=== PATIENT | male | born 1975 | race Caucasian/White ===

== ENCOUNTER → 2019-09-13 | Outpatient (CLI) | payer BC ==
--- NOTE | 2019-09-13 14:05 | US ---
EXAMINATION TYPE: US liver DATE OF EXAM: 09/13/2019 COMPARISON: NONE CLINICAL HISTORY: R74.8 elevated liver enzymes. EXAM MEASUREMENTS: Liver Length: 16.0 cm Gallbladder Wall: 0.10 cm CBD: 0.4 cm Right Kidney: 10.8 x 4.7 x 5.1 cm Pancreas: portions visualized wnl, mostly obscured by bowel gas Liver: Increased attenuation Gallbladder: wnl Evidence for sonographic Young's sign: no CBD: wnl Right Kidney: No hydronephrosis or masses seen There is no ascites. IMPRESSION: Coarse liver echotexture is likely credit and collections representative of underlying hepatic steatosis.
== END | disposition home or self-care (01) ==
LOC: RADUSWWP 12:16
PROVIDERS: ATTEND Family Medicine
DX: R93.2 Abnormal findings on diagnostic imaging of liver and biliary tract (principal); R74.8 Abnormal levels of other serum enzymes
CPT/HCPCS: 76705

== ENCOUNTER 2021-06-17 16:12 | Emergency (ER) | payer BC ==
[2021-06-17 16:19] VITALS: TEMP 98.9
[2021-06-17 16:55] LABS: Basophils % (A) 0 %; Eosinophils # (A) 0.2 k/uL (0-0.7); Eosinophils % (A) 2 %; HCT 47.5 % (39.0-53.0); Lymphocytes # (A) 1.8 k/uL (1.0-4.8); Lymphocytes % (A) 17 %; MCH 32.4 pg (25.0-35.0); MCHC 33.5 g/dL (31.0-37.0); MCV 96.6 fL (80.0-100.0); Mean Platelet Volume 8.2; Monocytes # (A) 0.5 k/uL (0-1.0); Monocytes % (A) 5 %; Neutrophils # (A) 7.7 k/uL (1.3-7.7); Neutrophils % (A) 74 %; Platelet Count 220 k/uL (150-450); RBC 4.92 m/uL (4.30-5.90); RDW 11.4 % (11.5-15.5); WBC 10.4 k/uL (3.8-10.6)
[2021-06-17 17:06] LABS: ALT 63 U/L (4-49); AST 39 U/L (17-59); African American GFR (CKD) >90 (>60 ml/min/1.73 sqM); Albumin 4.5 g/dL (3.5-5.0); Alkaline Phosphatase 70 U/L (38-126); Anion Gap 11 mmol/L; Blood Urea Nitrogen 16 mg/dL (9-20); Carbon Dioxide 22 mmol/L (22-30); Chloride 102 mmol/L (98-107); Glucose 155 mg/dL (74-99); Lipase 250 U/L (23-300); Magnesium 1.5 mg/dL (1.6-2.3); Non-African American GFR(CKD) 84 (>60 ml/min/1.73 sqM); Sodium 135 mmol/L (137-145); Total Bilirubin 1.4 mg/dL (0.2-1.3); Total Protein 7.4 g/dL (6.3-8.2)
[2021-06-17 17:19] LABS: Partial Thromboplastin Time 23.6 sec (22.0-30.0); Prothrombin Time 10.3 sec (9.0-12.0)
[2021-06-17] MEDS ORDERED: MAGNESIUM OXIDE 400 MG TAB PO STA (18:57)
--- NOTE | 2021-06-17 18:59 | ED ---
General Adult HPI - General Chief complaint: Chest Pain Stated complaint: PCP sent pt abnormal EKG Time Seen by Provider: 06/17/21 18:32 Source: patient Mode of arrival: ambulatory Limitations: no limitations - History of Present Illness Initial comments: Dictation was produced using [employer] dictation software. please excuse any grammatical, word or spelling errors. Chief Complaint: 46-year-old male past nuchal history of hypertension presents with concerns from mid-level at the PCPs office about perhaps ACS. History of Present Illness: She is a 46-year-old male evaluated primary care physician's office to get a refill for his hypertension meds. Patient suffers from chronic GERD for the last 16 years. He states he gets episodes of GERD symptoms every so often. States his sugar by food. He told this to the mid- level at the PCPs office. She states that she was concerned about ACS. She said him to the ER to be evaluated. Patient states that it's like his typical GERD symptoms. He denies any exertional pain. No associated diaphoresis or nausea. Patient has a history of coronary artery disease. Patient does not have any history of cholesterol disorder. No tobacco use. No family history of coronary artery disease. The ROS documented in this emergency department record has been reviewed and confirmed by me. Those systems with pertinent positive or negative responses have been documented in the HPI. All other systems are other negative and/or noncontributory. PHYSICAL EXAM: General Impression: Alert and oriented x3, not in acute distress HEENT: Normocephalic atraumatic, extra-ocular movements intact, pupils equal and reactive to light bilaterally, mucous membranes moist. Cardiovascular: Heart regular rate and rhythm Chest: Able to complete full sentences, no retractions, no tachypnea Abdomen: abdomen soft, non-tender, non-distended, no organomegaly Musculoskeletal: Pulses present and equal in all extremities, no peripheral edema Motor: no focal deficits noted Neurological: CN II-XII grossly intact, no focal motor or sensory deficits noted Skin: Intact with no visualized rashes Psych: Normal affect and mood ED course: 46-year-old male sent in from PCPs office for concerns of ACS. Signs upon arrival mildly tachycardic 112, rest of vital signs within acceptable limits. EKG shows no signs of ischemia or infarction. Patient is sinus tachycardic but he feels anxious. Denies any shortness of breath. Denies any active pain symptoms at this time. Labs and x-rays ordered via advance triage protocol. Labs are unremarkable. Troponins negative. Vision is mild magnesium 1.5. Patient given by mouth magnesium oxide. Patient's symptoms likely secondary to GERD. Is not having any active symptoms. Is well-appearing at the bedside. He has no risk factors. Pressure on is negative. Disposition options were discussed. Patient is agreeable for second troponin to risk stratify ACS. Second troponin was negative. Patient told to follow-up with his primary care doctor for possible outpatient stress test. Return precautions discussed. EKG interpretation: Ventricular rate 104, sinus tachycardia,. Interval 1:30, QRS 114, QTc 449. No CT prolongation, no QTC prolongation, no ST or T-wave changes noted.. Overall, this EKG is unremarkable - Related Data Allergies Allergy/AdvReac Type Severity Reaction Status Date / Time Penicillins Allergy Rash/Hives Verified 06/17/21 16:19 Review of Systems ROS Statement: Those systems with pertinent positive or pertinent negative responses have been documented in the HPI. ROS Other: All systems not noted in ROS Statement are negative. Past Medical History Past Medical History: Hypertension History of Any Multi-Drug Resistant Organisms: None Reported Past Surgical History: Hernia Repair Past Psychological History: No Psychological Hx Reported Smoking Status: Never smoker Past Alcohol Use History: Occasional Past Drug Use History: None Reported General Exam Limitations: no limitations Course Vital Signs 06/17/21 16:17 Temperature 98.9 F Pulse Rate 112 H Respiratory 20 Rate Blood Pressure 143/87 O2 Sat by Pulse 100 Oximetry Medical Decision Making - Lab Data Result diagrams: 06/17/21 16:23 06/17/21 16:23 Lab Results 06/17/21 06/17/21 06/17/21 Range/Units 16:23 16:23 16:23 WBC 10.4 (3.8-10.6) k/uL RBC 4.92 (4.30-5.90) m/uL Hgb 16.0 (13.0-17.5) gm/dL Hct 47.5 (39.0-53.0) % MCV 96.6 (80.0-100.0) fL MCH 32.4 (25.0-35.0) pg MCHC 33.5 (31.0-37.0) g/dL RDW 11.4 L (11.5-15.5) % Plt Count 220 (150-450) k/uL MPV 8.2 Neutrophils % 74 % Lymphocytes % 17 % Monocytes % 5 % Eosinophils % 2 % Basophils % 0 % Neutrophils # 7.7 (1.3-7.7) k/uL Lymphocytes # 1.8 (1.0-4.8) k/uL Monocytes # 0.5 (0-1.0) k/uL Eosinophils # 0.2 (0-0.7) k/uL Basophils # 0.0 (0-0.2) k/uL PT 10.3 (9.0-12.0) sec INR 1.0 (<1.2) APTT 23.6 (22.0-30.0) sec Sodium 135 L (137-145) mmol/L Potassium 4.0 (3.5-5.1) mmol/L Chloride 102 (98-107) mmol/L Carbon Dioxide 22 (22-30) mmol/L Anion Gap 11 mmol/L BUN 16 (9-20) mg/dL Creatinine 1.07 (0.66-1.25) mg/dL Est GFR (CKD-EPI)AfAm >90 (>60 ml/min/1.73 sqM) Est GFR (CKD-EPI)NonAf 84 (>60 ml/min/1.73 sqM) Glucose 155 H (74-99) mg/dL Calcium 10.0 (8.4-10.2) mg/dL Magnesium 1.5 L (1.6-2.3) mg/dL Total Bilirubin 1.4 H (0.2-1.3) mg/dL AST 39 (17-59) U/L ALT 63 H (4-49) U/L Alkaline Phosphatase 70 (38-126) U/L Troponin I (0.000-0.034) ng/mL Total Protein 7.4 (6.3-8.2) g/dL Albumin 4.5 (3.5-5.0) g/dL Lipase 250 (23-300) U/L 06/17/21 06/17/21 Range/Units 16:23 19:34 WBC (3.8-10.6) k/uL RBC (4.30-5.90) m/uL Hgb (13.0-17.5) gm/dL Hct (39.0-53.0) % MCV (80.0-100.0) fL MCH (25.0-35.0) pg MCHC (31.0-37.0) g/dL RDW (11.5-15.5) % Plt Count (150-450) k/uL MPV Neutrophils % % Lymphocytes % % Monocytes % % Eosinophils % % Basophils % % Neutrophils # (1.3-7.7) k/uL Lymphocytes # (1.0-4.8) k/uL Monocytes # (0-1.0) k/uL Eosinophils # (0-0.7) k/uL Basophils # (0-0.2) k/uL PT (9.0-12.0) sec INR (<1.2) APTT (22.0-30.0) sec Sodium (137-145) mmol/L Potassium (3.5-5.1) mmol/L Chloride (98-107) mmol/L Carbon Dioxide (22-30) mmol/L Anion Gap mmol/L BUN (9-20) mg/dL Creatinine (0.66-1.25) mg/dL Est GFR (CKD-EPI)AfAm (>60 ml/min/1.73 sqM) Est GFR (CKD-EPI)NonAf (>60 ml/min/1.73 sqM) Glucose (74-99) mg/dL Calcium (8.4-10.2) mg/dL Magnesium (1.6-2.3) mg/dL Total Bilirubin (0.2-1.3) mg/dL AST (17-59) U/L ALT (4-49) U/L Alkaline Phosphatase (38-126) U/L Troponin I <0.012 <0.012 (0.000-0.034) ng/mL Total Protein (6.3-8.2) g/dL Albumin (3.5-5.0) g/dL Lipase (23-300) U/L Disposition Clinical Impression: Chest pain Disposition: HOME SELF-CARE Condition: Good Instructions (If sedation given, give patient instructions): Chest Pain (ED) Additional Instructions: Follow-up with PCP for possible outpatient stress test. Is patient prescribed a controlled substance at d/c from ED?: No Referrals: Humberto Elena MD [Primary Care Provider] - 1-2 days
--- NOTE | 2021-06-17 19:08 | XR ---
EXAMINATION TYPE: XR chest 2V DATE OF EXAM: 06/17/2021 COMPARISON: NONE HISTORY: Abnormal cardiogram TECHNIQUE: 2 views FINDINGS: Heart and mediastinum are normal. Lungs are clear. Diaphragm is normal. Bony thorax appears normal. IMPRESSION: Normal chest.
[2021-06-17] MEDS ORDERED: ASPIRIN 81 MG PO STA (20:48)
[2021-06-17 21:01] VITALS: BP 133/87; PULSE 85; RESP 18
== END 2021-06-17 20:58 | disposition home or self-care (01) ==
LOC: EC 16:12
DX: R07.9 Chest pain, unspecified (principal); I10 Essential (primary) hypertension; K21.9 Gastro-esophageal reflux disease without esophagitis; Z88.0 Allergy status to penicillin
CPT/HCPCS: 36415; 71046; 80053; 83690; 83735; 84484; 85025; 85610; 85730; 93005; 99285

== ENCOUNTER 2022-01-11 12:03 | Observation (INO) | payer BC ==
[2022-01-11] MEDS ORDERED: LORazepam 2 MG/ML INJ IV STA (12:25)
[2022-01-11] MEDS ORDERED: ASPIRIN 81 MG PO STA (12:25)
[2022-01-11] MEDS ORDERED: NITROGLYCERIN OINT 1 INCH/GM PACKET TOPICAL STA (12:25)
--- NOTE | 2022-01-11 12:28 | ED ---
General Adult HPI - General Chief complaint: Chest Pain Stated complaint: chest pain Time Seen by Provider: 01/11/22 12:05 Source: patient, RN notes reviewed, old records reviewed Mode of arrival: wheelchair Limitations: no limitations - History of Present Illness Initial comments: This is a 46-year-old male with a past medical history significant for high blood pressure. Patient states she's also on metformin for elevated liver enzymes. Patient states he drinks about 4 beers a day. Patient comes in today because he is having chest pain and radiation to both arms in particular radiation to the right arm. Patient states she's also short of breath. Patient states he was in about a week ago for the same thing and then went to [place] again for chest pain on and he states he came back today so he came in again. Patient states the chest pain started when he started to become into bed with his this morning and he rested and thought it would get better but it did not so she came to the emergency department. Patient denies any fever chills or cough. Patient denies any family history of chest pain patient denies any smoking. Patient denies any abdominal pain patient denies nausea vomiting diarrhea. - Related Data Home Medications Medication Instructions Recorded Confirmed 5Hydroxytryptophan(Oxitriptan) 200 mg PO DAILY 01/04/22 01/11/22 [5-Htp] Ascorbic Acid [Vitamin C] 1,000 mg PO DAILY 01/04/22 01/11/22 Cholecalciferol [Vitamin D3 (25 25 mcg PO DAILY 01/04/22 01/11/22 Mcg = 1000 Iu)] Loratadine-Pseudoeph 5-120 mg 1 tab PO DAILY 01/04/22 01/11/22 [Claritin-D 12 Hour] Milk Thistle 150 mg PO DAILY 01/04/22 01/11/22 Omeprazole Magnesium [PriLOSEC OTC] 20 mg PO DAILY 01/04/22 01/11/22 Vitamin E (Dl,Tocopheryl Acet) 400 unit PO DAILY 01/04/22 01/11/22 [Vitamin E (400 Iu = 180 mg)] amLODIPine BESYLATE/BENAZEPRIL 1 cap PO DAILY 01/04/22 01/11/22 [Lotrel 10-40 MG] hydroCHLOROthiazide [Hydrodiuril] 12.5 mg PO DAILY PRN 01/04/22 01/11/22 metFORMIN HCL ER [Glucophage XR] 500 mg PO DAILY 01/04/22 01/11/22 Allergies Allergy/AdvReac Type Severity Reaction Status Date / Time Penicillins Allergy Rash/Hives Verified 01/11/22 14:28 all over Review of Systems ROS Statement: Those systems with pertinent positive or pertinent negative responses have been documented in the HPI. ROS Other: All systems not noted in ROS Statement are negative. Past Medical History Past Medical History: Hypertension History of Any Multi-Drug Resistant Organisms: None Reported Past Surgical History: Hernia Repair Past Psychological History: No Psychological Hx Reported Smoking Status: Never smoker Past Alcohol Use History: Occasional Past Drug Use History: None Reported General Exam - General Exam Comments Initial Comments: GENERAL: Patient is well-developed and well-nourished. Patient is nontoxic and well- hydrated and is in mild distress. ENT: Neck is soft and supple. No significant lymphadenopathy is noted. Oropharynx is clear. Moist mucous membranes. Neck has full range of motion without eliciting any pain. EYES: The sclera were anicteric and conjunctiva were pink and moist. Extraocular movements were intact and pupils were equal round and reactive to light. Eyelid s were unremarkable. PULMONARY: Unlabored respirations. Good breath sounds bilaterally. No audible rales rhonchi or wheezing was noted. CARDIOVASCULAR: Patient is tachycardic. ABDOMEN: Soft and nontender with normal bowel sounds. SKIN: Skin is clear with no lesions or rashes and otherwise unremarkable. NEUROLOGIC: Patient is alert and oriented x3. Cranial nerves II through XII are grossly intact. Motor and sensory are also intact. Normal speech, volume and content. Symmetrical smile. MUSCULOSKELETAL: Normal extremities with adequate strength and full range of motion. LYMPHATICS: No significant lymphadenopathy is noted PSYCHIATRIC: Patient appears very anxious. Limitations: no limitations Course Vital Signs 01/11/22 01/11/22 12:04 13:00 Temperature 98.2 F Pulse Rate 121 H 98 Respiratory 18 18 Rate Blood Pressure 150/76 137/85 O2 Sat by Pulse 98 97 Oximetry Medical Decision Making - Medical Decision Making EKG shows sinus tachycardia at 115 bpm SD interval 174 QRS is under 15 QT interval 320 QTC is 389. Patient's EKG shows no ST segment elevation or depression. Chest x-ray shows no acute abnormality I spoke with some physicians Dr. Martinez she agreed to admit the patient admitted the patient wrote admitting orders.. - Lab Data Result diagrams: 01/11/22 12:31 01/11/22 12:31 Lab Results 01/11/22 01/11/22 01/11/22 Range/Units 12:31 12:31 12:31 WBC 6.8 (3.8-10.6) k/uL RBC 4.79 (4.30-5.90) m/uL Hgb 15.9 (13.0-17.5) gm/dL Hct 45.8 (39.0-53.0) % MCV 95.7 (80.0-100.0) fL MCH 33.3 (25.0-35.0) pg MCHC 34.8 (31.0-37.0) g/dL RDW 12.9 (11.5-15.5) % Plt Count 280 (150-450) k/uL MPV 8.0 Neutrophils % 81 % Lymphocytes % 11 % Monocytes % 6 % Eosinophils % 0 % Basophils % 1 % Neutrophils # 5.5 (1.3-7.7) k/uL Lymphocytes # 0.7 L (1.0-4.8) k/uL Monocytes # 0.4 (0-1.0) k/uL Eosinophils # 0.0 (0-0.7) k/uL Basophils # 0.1 (0-0.2) k/uL PT 10.7 (9.0-12.0) sec INR 1.0 (<1.2) APTT 24.9 (22.0-30.0) sec Sodium 133 L (137-145) mmol/L Potassium 3.8 (3.5-5.1) mmol/L Chloride 101 (98-107) mmol/L Carbon Dioxide 22 (22-30) mmol/L Anion Gap 10 mmol/L BUN 9 (9-20) mg/dL Creatinine 0.73 (0.66-1.25) mg/dL Est GFR (CKD-EPI)AfAm >90 (>60 ml/min/1.73 sqM) Est GFR (CKD-EPI)NonAf >90 (>60 ml/min/1.73 sqM) Glucose 136 H (74-99) mg/dL Calcium 9.3 (8.4-10.2) mg/dL Magnesium 1.7 (1.6-2.3) mg/dL Total Bilirubin 1.4 H (0.2-1.3) mg/dL AST 30 (17-59) U/L ALT 39 (4-49) U/L Alkaline Phosphatase 58 (38-126) U/L Troponin I (0.000-0.034) ng/mL Total Protein 7.4 (6.3-8.2) g/dL Albumin 4.7 (3.5-5.0) g/dL Urine Opiates Screen (NotDetected) Ur Oxycodone Screen (NotDetected) Urine Methadone Screen (NotDetected) Ur Propoxyphene Screen (NotDetected) Ur Barbiturates Screen (NotDetected) U Tricyclic Antidepress (NotDetected) Ur Phencyclidine Scrn (NotDetected) Ur Amphetamines Screen (NotDetected) U Methamphetamines Scrn (NotDetected) U Benzodiazepines Scrn (NotDetected) Urine Cocaine Screen (NotDetected) U Marijuana (THC) Screen (NotDetected) 01/11/22 01/11/22 Range/Units 12:31 13:13 WBC (3.8-10.6) k/uL RBC (4.30-5.90) m/uL Hgb (13.0-17.5) gm/dL Hct (39.0-53.0) % MCV (80.0-100.0) fL MCH (25.0-35.0) pg MCHC (31.0-37.0) g/dL RDW (11.5-15.5) % Plt Count (150-450) k/uL MPV Neutrophils % % Lymphocytes % % Monocytes % % Eosinophils % % Basophils % % Neutrophils # (1.3-7.7) k/uL Lymphocytes # (1.0-4.8) k/uL Monocytes # (0-1.0) k/uL Eosinophils # (0-0.7) k/uL Basophils # (0-0.2) k/uL PT (9.0-12.0) sec INR (<1.2) APTT (22.0-30.0) sec Sodium (137-145) mmol/L Potassium (3.5-5.1) mmol/L Chloride (98-107) mmol/L Carbon Dioxide (22-30) mmol/L Anion Gap mmol/L BUN (9-20) mg/dL Creatinine (0.66-1.25) mg/dL Est GFR (CKD-EPI)AfAm (>60 ml/min/1.73 sqM) Est GFR (CKD-EPI)NonAf (>60 ml/min/1.73 sqM) Glucose (74-99) mg/dL Calcium (8.4-10.2) mg/dL Magnesium (1.6-2.3) mg/dL Total Bilirubin (0.2-1.3) mg/dL AST (17-59) U/L ALT (4-49) U/L Alkaline Phosphatase (38-126) U/L Troponin I <0.012 (0.000-0.034) ng/mL Total Protein (6.3-8.2) g/dL Albumin (3.5-5.0) g/dL Urine Opiates Screen Detected H (NotDetected) Ur Oxycodone Screen Not Detected (NotDetected) Urine Methadone Screen Not Detected (NotDetected) Ur Propoxyphene Screen Not Detected (NotDetected) Ur Barbiturates Screen Not Detected (NotDetected) U Tricyclic Antidepress Not Detected (NotDetected) Ur Phencyclidine Scrn Not Detected (NotDetected) Ur Amphetamines Screen Not Detected (NotDetected) U Methamphetamines Scrn Not Detected (NotDetected) U Benzodiazepines Scrn Not Detected (NotDetected) Urine Cocaine Screen Not Detected (NotDetected) U Marijuana (THC) Screen Not Detected (NotDetected) Disposition Clinical Impression: Chest pain Disposition: ADMITTED IP TO THIS HOSP Referrals: Humberto Elena MD [Primary Care Provider] - 1-2 days Time of Disposition: 14:17
[2022-01-11 12:52] LABS: ALT 39 U/L (4-49); AST 30 U/L (17-59); African American GFR (CKD) >90 (>60 ml/min/1.73 sqM); Albumin 4.7 g/dL (3.5-5.0); Alkaline Phosphatase 58 U/L (38-126); Anion Gap 10 mmol/L; Blood Urea Nitrogen 9 mg/dL (9-20); Calcium 9.3 mg/dL (8.4-10.2); Carbon Dioxide 22 mmol/L (22-30); Chloride 101 mmol/L (98-107); Glucose 136 mg/dL (74-99); Magnesium 1.7 mg/dL (1.6-2.3); Non-African American GFR(CKD) >90 (>60 ml/min/1.73 sqM); Potassium 3.8 mmol/L (3.5-5.1); Sodium 133 mmol/L (137-145); Total Bilirubin 1.4 mg/dL (0.2-1.3); Total Protein 7.4 g/dL (6.3-8.2)
[2022-01-11 13:03] LABS: Partial Thromboplastin Time 24.9 sec (22.0-30.0); Prothrombin Time 10.7 sec (9.0-12.0)
[2022-01-11 13:11] LABS: Basophils # (A) 0.1 k/uL (0-0.2); Basophils % (A) 1 %; Eosinophils % (A) 0 %; HCT 45.8 % (39.0-53.0); HGB 15.9 gm/dL (13.0-17.5); Lymphocytes # (A) 0.7 k/uL (1.0-4.8); Lymphocytes % (A) 11 %; MCH 33.3 pg (25.0-35.0); MCHC 34.8 g/dL (31.0-37.0); MCV 95.7 fL (80.0-100.0); Monocytes # (A) 0.4 k/uL (0-1.0); Monocytes % (A) 6 %; Neutrophils # (A) 5.5 k/uL (1.3-7.7); Neutrophils % (A) 81 %; Platelet Count 280 k/uL (150-450); RBC 4.79 m/uL (4.30-5.90); RDW 12.9 % (11.5-15.5); WBC 6.8 k/uL (3.8-10.6)
--- NOTE | 2022-01-11 13:17 | XR ---
EXAMINATION TYPE: XR chest 2V DATE OF EXAM: 01/11/2022 COMPARISON: X-ray dated 01/04/2022 HISTORY: Chest pain TECHNIQUE: Frontal and lateral views of the chest are obtained. FINDINGS: Unremarkable lungs. No pleural effusion or pneumothorax. No cardiomegaly. Unremarkable bony thoracic cage. IMPRESSION: No definite acute pulmonary abnormality identified.
[2022-01-11 14:04] LABS: Amphetamine Screen,Urine Not Detected (NotDetected); Barbiturate Screen,Urine Not Detected (NotDetected); Benzodiazepines Screen,Urine Not Detected (NotDetected); Cocaine Screen,Urine Not Detected (NotDetected); Methadone Screen, Urine Not Detected (NotDetected); Opiate Screen,Urine Detected (NotDetected); Oxycodone Screen, Urine Not Detected (NotDetected); Phencyclidine Screen,Urine Not Detected (NotDetected); Tricyclic Antidepressant,Urine Not Detected (NotDetected); Urn Cannabinoid Scrn Not Detected (NotDetected)
[2022-01-11] MEDS ORDERED: NITROGLYCERIN SL TABS 0.4 MG TAB SUBLINGUAL PRN (14:37)
[2022-01-11] MEDS: NITROGLYCERIN OINT 1 INCH/GM PACKET TOPICAL SCH (17:28)
--- NOTE | 2022-01-11 21:17 | P.HPIM ---
History of Present Illness H&P Date: 01/11/22 Chief Complaint: Chest pain 46-year-old man with medical history of hypertension, diabetes, migraines, GERD presented with chest pain. Patient says his pain starts in his abdomen and radiates up to his chest, squeezing in nature, worse when lying flat. It is not particularly worse with exertion or food. He says he's had this issue on and off for about 3 weeks, has been assessed twice for heart attacks with stress test which was negative. He denies fevers, chills, nausea, vomiting, palpitations, cough, dyspnea, dysuria, dyschezia, numbness/weakness of extremities, constipation, diarrhea. Upon my evaluation, patient was afebrile, 146/75, heart rate 78, 98% on room air. CBC, chemistries are unremarkable. LFTs were unremarkable. Troponin was negative 3 times. Urine tox screen is positive for opiates. Chest x-ray shows no definitive cardiopulmonary pathology. EKG demonstrated sinus tachycardia with left axis deviation and incomplete right bundle-branch block. All Systems reviewed and pertinent positives and negatives noted in HPI, all other symptoms are negative Gen: awake, alert HEENT: normocephalic, atraumatic, good hearing acuity, moist mucous membranes Resp: good air exchange, breathing comfortably with no accessory muscle use CVS: good distal perfusion x 4, GI: soft, NTTP, ND : no SPT, no CVAT, yang catheter not present MSK: no pitting edema, no clubbing Neuro: non-focal, moving all extremities Psych: cooperative, euthymic mood Labs and imaging reviewed as above Assessment/plan: Chest pain, atypical -Admit to observation, telemetry -Trend troponins -EKG/nitro when necessary -ASA, statin -Add sucralfate, Tums when necessary -Cardiology consulted by emergency room -Outpatient GI referral for EGD Hypertension Diabetes type 2 History of migraines GERD -Home medications reviewed and reconciled Patient is full code DVT prophylaxis with enoxaparin Past Medical History Past Medical History: Hypertension History of Any Multi-Drug Resistant Organisms: None Reported Past Surgical History: Hernia Repair Past Anesthesia/Blood Transfusion Reactions: No Reported Reaction Past Psychological History: No Psychological Hx Reported Smoking Status: Never smoker Past Alcohol Use History: Occasional Past Drug Use History: None Reported - Past Family History Mother Family Medical History: Hypertension Father Family Medical History: Hypertension Medications and Allergies Home Medications Medication Instructions Recorded Confirmed Type 5Hydroxytryptophan(Oxitriptan) 200 mg PO DAILY 01/04/22 01/11/22 History [5-Htp] Ascorbic Acid [Vitamin C] 1,000 mg PO DAILY 01/04/22 01/11/22 History Cholecalciferol [Vitamin D3 (25 25 mcg PO DAILY 01/04/22 01/11/22 History Mcg = 1000 Iu)] Loratadine-Pseudoeph 5-120 mg 1 tab PO DAILY 01/04/22 01/11/22 History [Claritin-D 12 Hour] Milk Thistle 150 mg PO DAILY 01/04/22 01/11/22 History Omeprazole Magnesium [PriLOSEC OTC] 20 mg PO DAILY 01/04/22 01/11/22 History Vitamin E (Dl,Tocopheryl Acet) 400 unit PO DAILY 01/04/22 01/11/22 History [Vitamin E (400 Iu = 180 mg)] amLODIPine BESYLATE/BENAZEPRIL 1 cap PO DAILY 01/04/22 01/11/22 History [Lotrel 10-40 MG] hydroCHLOROthiazide [Hydrodiuril] 12.5 mg PO DAILY PRN 01/04/22 01/11/22 History metFORMIN HCL ER [Glucophage XR] 500 mg PO DAILY 01/04/22 01/11/22 History Allergies Allergy/AdvReac Type Severity Reaction Status Date / Time Penicillins Allergy Rash/Hives Verified 01/11/22 16:10 all over Physical Exam Osteopathic Statement: *. No significant issues noted on an osteopathic structural exam other than those noted in the History and Physical/Consult. Vitals: Vital Signs Temp Pulse Pulse Resp BP BP Pulse Ox 01/11/22 16:23 78 01/11/22 15:00 98.6 F 93 78 18 126/80 146/75 98 01/11/22 13:00 98 18 137/85 97 01/11/22 12:04 98.2 F 121 H 18 150/76 98 Intake and Output 01/11/22 01/11/22 01/11/22 06:59 14:59 22:59 Intake Total 240 Balance 240 Intake: Oral 240 Other: Voiding Method Toilet Weight 97.522 kg Results CBC & Chem 7: 01/11/22 12:31 05/23/22 12:31 Labs: Abnormal Lab Results - Last 24 Hours (Table) 01/11/22 01/11/22 01/11/22 Range/Units 12:31 12:31 13:13 Lymphocytes # 0.7 L (1.0-4.8) k/uL Sodium 133 L (137-145) mmol/L Glucose 136 H (74-99) mg/dL Total Bilirubin 1.4 H (0.2-1.3) mg/dL Urine Opiates Screen Detected H (NotDetected) Thrombosis Risk Factor Assmnt - Choose All That Apply Each Factor Represents 1 point: Age 41-60 years, Obesity (BMI >25) Thrombosis Risk Factor Assessment Total Risk Factor Score: 2 Thrombosis Risk Factor Assessment Level: Low Risk
[2022-01-12] MEDS: NITROGLYCERIN OINT 1 INCH/GM PACKET TOPICAL SCH ×2 (01:04→05:26)
[2022-01-12 03:18] VITALS: TEMP 98.2
[2022-01-12 07:27] VITALS: BP 127/78; PULSE 63; RESP 18
[2022-01-12] MEDS ORDERED: INSULIN ASPART (NovoLOG) 100 UNIT/ML VIAL SQ SCH (07:30)
[2022-01-12 08:04] LABS: Glucose,Whole Blood 113 mg/dL (75-99)
[2022-01-12] MEDS ORDERED: ASPIRIN 81 MG PO SCH (09:00)
[2022-01-12] MEDS ORDERED: PANTOPRAZOLE 40 MG TABLET PO SCH (09:00)
[2022-01-12] MEDS ORDERED: NON FORMULARY DRUG (Milk Thistle [Milk Thistle] 150 MG Capsule) PO SCH (09:00)
[2022-01-12] MEDS ORDERED: LORATADINE-PSEUDOEPH 5-120 MG 1 EACH TAB.ER.12H PO SCH (09:00)
[2022-01-12] MEDS ORDERED: hydroCHLOROthiazide 12.5 MG CAP PO PRN (09:00)
[2022-01-12] MEDS ORDERED: NON FORMULARY DRUG (5hydroxytryptophan(Oxitriptan) [5-Htp] 200 MG Capsule) PO SCH (09:00)
[2022-01-12] MEDS ORDERED: CHOLECALCIFEROL 25 MCG (1000 IU) TABLET PO SCH (09:00)
[2022-01-12] MEDS ORDERED: ENOXAPARIN 40 MG/0.4 ML SYRINGE SQ SCH (09:00)
[2022-01-12] MEDS ORDERED: VITAMIN E (DL,TOCOPHERYL ACET) 400 UNIT (180 MG) CAP PO SCH (09:00)
[2022-01-12] MEDS ORDERED: ASPIRIN 325 MG TAB PO SCH (09:00)
[2022-01-12] MEDS ORDERED: amLODIPine 10 MG TAB PO SCH (09:00)
[2022-01-12] MEDS ORDERED: ASCORBIC ACID 500 MG TAB PO SCH (09:00)
[2022-01-12] MEDS ORDERED: lisinopriL 20 MG TAB PO SCH (09:00)
--- NOTE | 2022-01-12 09:01 | P.CRDCN ---
History of Present Illness History of present illness: This is a pleasant 46-year-old male past medical history significant for hypertension, fatty liver, GERD. He follows with Dr. Hathaway. We have been asked to see in consultation for chest pain. Patient is seen and examined at bedside. He presents to the emergency department with complaints of abdominal pain. He has been having burning abdominal pain intermittently for 3 weeks. He states he has had GERD for 15+ years and this discomfort is different. Located in the umbilical region of his abdomen. It radiates up to his chest and right shoulder. He states it comes and goes, non-exertional, when it does occur its 10/10 and debilitating for him, that he cannot do his daily activities. He has associated nausea and vomiting, two episodes of emesis yesterday. He sometimes has associated chills/diaphoresis. He denies any shortness of breath, syncope, or near syncope, palpitations. He states he is being worked up for vertigo currently as well. He had an appointment with his PCP yesterday, but his pain was so severe he presented to the ER. He was recently discharged from [facility] on 01/08/2022, he presented there with similar complaints. He underwent a Nuclear stress test and echocardiogram and was told it was normal. He was discharged home with follow up. He denies history of CAD, [place], Stroke or Diabetes. He was placed on Metformin for fatty liver. He denies any tobacco use or illicit drug use. DIAGNOSTICS * EKG reveals sinus tachycardia, heart rate 115, non-specific ST-T wave abnormalities, no acute ischemia. * Recent stress Echo in the office 07/27/2021 with no evidence of stress induced ischemia or wall motion abnormalities. Patient walked for a total of 9 minutes and achieved 10.3 METS with a maximum heart rate of 160bpm. Which is about 92% of MPHR * Echocardiogram 01/05/2022, revealed EF 55-60%, mild concentric LVH, trace mitral regurgitation, trace tricuspid regurgitation * Telemetry tracings indicate sinus mechanism HR 70s-90s * Chest xray no acute cardiopulmonary process * Laboratory reviewed, troponin negative x 3, CBC unremarkable, sodium 133, potassium 3.8, BUN 9 serum creatinine 0.73, magnesium 1.7, Urine tox positive of opiates * Current home medications include amlodipine/benazepril 1040mg daily, Hydrochlorothiazide 12.5 mg daily, metformin, Vitamin E, prilosec, clairitin, vitamin D and vitamin C REVIEW OF SYSTEMS At the time of my exam: CONSTITUTIONAL: Denies fever or chills. CARDIOVASCULAR: Denies chest pain, shortness of breath, orthopnea, PND or palpitations. RESPIRATORY: Denies cough. GASTROINTESTINAL: Denies abdominal pain, diarrhea, constipation, nausea or vomiting. MUSCULOSKELETAL: Denies myalgias. NEUROLOGIC: Denies numbness, tingling, headache or weakness. ENDOCRINE: Denies fatigue, weight change, polydipsia or polyurina. GENITOURINARY: Denies burning, hematuria or urgency with micturation. HEMATOLOGIC: Denies history of anemia or bleeding. PHYSICAL EXAMINATION Vitals reviewed CONSTITUTIONAL: No apparent distress. HEENT: Head is normocephalic. Pupils are equal, round. Sclerae anicteric. Mucous membranes of the mouth are moist. No JVD. No carotid bruit. CHEST EXAMINATION: Lungs are clear to auscultation. No chest wall tenderness is noted on palpation or with deep breathing. HEART EXAMINATION: Regular rate and rhythm. S1, S2 heard. No murmurs, gallops or rub. ABDOMEN: Soft, nontender. Positive bowel sounds. EXTREMITIES: 2+ peripheral pulses, no lower extremity edema and no calf tenderness. SKIN: warm, dry NEUROLOGIC EXAMINATION: Patient is awake, alert and oriented x3. ASSESSMENT Abdominal pain with radiation to the center of the chest and right shoulder, acute coronary syndrome has been ruled out Hypertension GERD History of fatty liver PLAN An acute coronary event has been ruled out with no EKG evidence of ischemia and negative cardiac enzymes. From a cardiology perspective, no further workup in terms of chest pain at this time. Patient is stable from our perspective. Patient with recent negative workup for chest pain including Echo 01/05/2022 and Stress echo 07/2021, and states he had a negative Nuclear stress test on 01/07/2022 at [facility], we will obtain these records as well. Continue home cardiac medications. Abdominal pain workup per primary Patient may follow up outpatient with Dr. Hathaway We will follow the patient as needed. Please reach out with any further questions or concerns. Thank you kindly for this consultation. Nurse practitioner note has been reviewed by physician. Signing provider agrees with the documented findings, assessment, and plan of care. Past Medical History Past Medical History: Hypertension History of Any Multi-Drug Resistant Organisms: None Reported Past Surgical History: Hernia Repair Past Anesthesia/Blood Transfusion Reactions: No Reported Reaction Past Psychological History: No Psychological Hx Reported Smoking Status: Never smoker Past Alcohol Use History: Occasional Past Drug Use History: None Reported - Past Family History Mother Family Medical History: Hypertension Father Family Medical History: Hypertension Medications and Allergies Home Medications Medication Instructions Recorded Confirmed Type 5Hydroxytryptophan(Oxitriptan) 200 mg PO DAILY 01/04/22 01/11/22 History [5-Htp] Ascorbic Acid [Vitamin C] 1,000 mg PO DAILY 01/04/22 01/11/22 History Cholecalciferol [Vitamin D3 (25 25 mcg PO DAILY 01/04/22 01/11/22 History Mcg = 1000 Iu)] Loratadine-Pseudoeph 5-120 mg 1 tab PO DAILY 01/04/22 01/11/22 History [Claritin-D 12 Hour] Milk Thistle 150 mg PO DAILY 01/04/22 01/11/22 History Omeprazole Magnesium [PriLOSEC OTC] 20 mg PO DAILY 01/04/22 01/11/22 History Vitamin E (Dl,Tocopheryl Acet) 400 unit PO DAILY 01/04/22 01/11/22 History [Vitamin E (400 Iu = 180 mg)] amLODIPine BESYLATE/BENAZEPRIL 1 cap PO DAILY 01/04/22 01/11/22 History [Lotrel 10-40 MG] hydroCHLOROthiazide [Hydrodiuril] 12.5 mg PO DAILY PRN 01/04/22 01/11/22 History metFORMIN HCL ER [Glucophage XR] 500 mg PO DAILY 01/04/22 01/11/22 History Allergies Allergy/AdvReac Type Severity Reaction Status Date / Time Penicillins Allergy Rash/Hives Verified 01/11/22 16:10 all over Physical Exam Vitals: Vital Signs Temp Pulse Pulse Pulse Resp BP BP 01/12/22 02:45 98.2 F 72 16 122/77 01/11/22 18:40 98.4 F 82 18 128/72 01/11/22 16:23 78 01/11/22 15:00 98.6 F 93 78 18 126/80 146/75 01/11/22 13:00 98 18 137/85 01/11/22 12:04 98.2 F 121 H 18 150/76 Pulse Ox 01/12/22 02:45 98 01/11/22 18:40 98 01/11/22 16:23 01/11/22 15:00 98 01/11/22 13:00 97 01/11/22 12:04 98 Intake and Output 01/11/22 01/11/22 01/12/22 14:59 22:59 06:59 Intake Total 740 500 Balance 740 500 Intake: Oral 740 500 Other: Voiding Method Toilet Weight 97.522 kg Results 01/11/22 12:31 01/11/22 12:31 Cardiac Enzymes 01/11/22 01/11/22 01/11/22 Range/Units 12:31 12:31 15:14 AST 30 (17-59) U/L Troponin I <0.012 <0.012 (0.000-0.034) ng/mL 01/11/22 Range/Units 19:22 AST (17-59) U/L Troponin I <0.012 (0.000-0.034) ng/mL Coagulation 01/11/22 Range/Units 12:31 PT 10.7 (9.0-12.0) sec APTT 24.9 (22.0-30.0) sec CBC 01/11/22 Range/Units 12:31 WBC 6.8 (3.8-10.6) k/uL RBC 4.79 (4.30-5.90) m/uL Hgb 15.9 (13.0-17.5) gm/dL Hct 45.8 (39.0-53.0) % Plt Count 280 (150-450) k/uL Comprehensive Metabolic Panel 01/11/22 Range/Units 12:31 Sodium 133 L (137-145) mmol/L Potassium 3.8 (3.5-5.1) mmol/L Chloride 101 (98-107) mmol/L Carbon Dioxide 22 (22-30) mmol/L BUN 9 (9-20) mg/dL Creatinine 0.73 (0.66-1.25) mg/dL Glucose 136 H (74-99) mg/dL Calcium 9.3 (8.4-10.2) mg/dL AST 30 (17-59) U/L ALT 39 (4-49) U/L Alkaline Phosphatase 58 (38-126) U/L Total Protein 7.4 (6.3-8.2) g/dL Albumin 4.7 (3.5-5.0) g/dL Current Medications Generic Name Dose Route Start Last Admin Trade Name Freq PRN Reason Stop Dose Admin Amlodipine Besylate 10 mg 01/12/22 09:00 Amlodipine 10 Mg Tab PO DAILY [facility] Ascorbic Acid 1,000 mg 01/12/22 09:00 Ascorbic Acid 500 Mg Tab PO DAILY [facility] Aspirin 81 mg 01/12/22 09:00 Aspirin 81 Mg PO DAILY [facility] Atorvastatin Calcium 80 mg 01/12/22 21:00 Atorvastatin 80 Mg Tab PO HS [facility] Cholecalciferol 25 mcg 01/12/22 09:00 Cholecalciferol 25 Mcg (1000 Iu) Tablet PO DAILY [facility] Enoxaparin Sodium 40 mg 01/12/22 09:00 Enoxaparin 40 Mg/0.4 Ml Syringe SQ DAILY [facility] Hydrochlorothiazide 12.5 mg 01/12/22 09:00 Hydrochlorothiazide 12.5 Mg Cap PO DAILY PRN swelling Insulin Aspart 0 unit 01/12/22 07:30 Insulin Aspart (Novolog) 100 Unit/Ml Vial SQ AC-TID [facility] Protocol Lisinopril 40 mg 01/12/22 09:00 Lisinopril 20 Mg Tab PO DAILY [facility] Loratadine/Pseudoephedrine Sulfate 1 each 01/12/22 09:00 Loratadine-Pseudoeph 5-120 Mg 1 Each Tab.Er.12h PO DAILY [facility] Nitroglycerin 0.4 mg 01/11/22 14:37 Nitroglycerin Sl Tabs 0.4 Mg Tab SUBLINGUAL Q5M PRN Chest Pain Nitroglycerin 1 inch 01/11/22 18:00 01/12/22 05:26 Nitroglycerin Oint 1 Inch/Gm Packet TOPICAL Not Given Q6HR [facility] Pantoprazole Sodium 40 mg 01/12/22 09:00 Pantoprazole 40 Mg Tablet PO DAILY [facility] Vitamin E 400 unit 01/12/22 09:00 Vitamin E (Dl,Tocopheryl Acet) 400 Unit (180 Mg) Cap PO DAILY [facility] Intake and Output 01/11/22 01/11/22 01/12/22 14:59 22:59 06:59 Intake Total 740 500 Balance 740 500 Intake: Oral 740 500 Other: Voiding Method Toilet Weight 97.522 kg Patient Weight 01/12/22 06:59 Weight 97.522 kg 01/11/22 12:31 01/11/22 12:31
[2022-01-12 09:27] LABS: Basophils # (A) 0.06 X 10*3/uL (0.00-0.10); Basophils % (A) 1.1 %; Eosinophils # (A) 0.18 X 10*3/uL (0.04-0.35); Eosinophils % (A) 3.3 %; HCT 42.7 % (39.6-50.0); HGB 14.9 g/dL (13.0-17.0); Immature Grans, Automated 0.4 %; Lymphocytes # (A) 1.27 X 10*3/uL (0.90-5.00); Lymphocytes % (A) 23.3 %; MCHC 34.9 g/dL (32.0-37.0); MCV 94.5 fL (80.0-97.0); Mean Platelet Volume 10.7 fL (9.5-12.2); Monocytes # (A) 0.72 X 10*3/uL (0.20-1.00); Monocytes % (A) 13.2 %; NRBC Per 100 WBC 0 /100 WBCS (0.0-0.0); Neutrophils # (A) 3.21 X 10*3/uL (1.80-7.70); Neutrophils % (A) 58.7 %; Platelet Count 250 X 10*3/uL (140-440); RBC 4.52 X 10*6/uL (4.40-5.60); RDW 12.6 % (11.5-14.5); WBC 5.46 X 10*3/uL (4.50-10.00)
[2022-01-12 09:29] LABS: African American GFR (CKD) 124.2 (60.0-200.0); Anion Gap 12.1 mmol/L (10.00-18.00); BUN/Creat Ratio 10.25 Ratio (12.00-20.00); Blood Urea Nitrogen 8.2 mg/dL (9.0-27.0); Calcium 9.2 mg/dL (8.7-10.3); Carbon Dioxide 22.9 mmol/L (20.0-27.5); HDL Cholesterol 66.5 mg/dL (40.00-60.00); Magnesium 2.1 mg/dL (1.5-2.4); Non-African American GFR(CKD) 107.1 (60.0-200.0); Potassium 4.2 mmol/L (3.5-5.5)
[2022-01-12 09:41] LABS: Chol/HDL Ratio 2.39 Ratio
[2022-01-12 09:50] LABS: Triglycerides 49.4 mg/dL (0.00-149.00)
--- NOTE | 2022-01-12 09:57 | P.DS ---
Providers Date of admission: 01/11/22 14:39 Expected date of discharge: 01/12/22 Attending physician: Rachell Martinez DO Consults: 01/11/22 14:39 Consult Physician Urgent Consulting Provider: [facility] Consult Reason/Comments: Chest pain Do you want consulting provider notified?: Yes Primary care physician: Humberto Elena Hospital Course: Discharge Diagnosis: Chest pain, acute coronary event ruled out Hypertension Diabetes type 2 History of migraines GERD, Home medications reviewed and reconciled Hospital Course: 46-year-old man with medical history of hypertension, diabetes, migraines, GERD presented with chest pain. Patient says his pain starts in his abdomen and radiates up to his chest, squeezing in nature, worse when lying flat. It is not particularly worse with exertion or food. He says he's had this issue on and off for about 3 weeks, has been assessed twice for heart attacks with stress test which was negative. He denies fevers, chills, nausea, vomiting, palpitations, cough, dyspnea, dysuria, dyschezia, numbness/weakness of extremities, constipation, diarrhea. CBC, chemistries are unremarkable. LFTs were unremarkable. Troponin was negative 3 times. Urine tox screen is positive for opiates. Chest x-ray shows no definitive cardiopulmonary pathology. EKG demonstrated sinus tachycardia with left axis deviation and incomplete right bundle-branch block. Patient monitored overnight. Troponins trended. All negative at less than 0.0123 draws. Lipid profile unremarkable. Cardiology recommending outpatient follow-up in their office. Patient recommended to follow up outpatient with PCP, cardiology, and GI. Patient discharged home on Carafate and Protonix. A total of 31 minutes of time were spent preparing this complex discharge summary. Pt was discharged on 01/12/22 at 09:55 a.m. Avtar Hairston NP rendered care for this patient independently, reviewed the findings and plan as documented in the note above. I did not physically speak with or examine the patient on this date. Patient Condition at Discharge: Stable Plan - Discharge Summary New Discharge Prescriptions: New Sucralfate [Carafate] 1 gm PO ACHS 30 Days #1200 ml Pantoprazole [Protonix] 40 mg PO DAILY 30 Days #30 tab Continue metFORMIN HCL ER [Glucophage XR] 500 mg PO DAILY Milk Thistle 150 mg PO DAILY Loratadine-Pseudoeph 5-120 mg [Claritin-D 12 Hour] 1 tab PO DAILY Cholecalciferol [Vitamin D3 (25 Mcg = 1000 Iu)] 25 mcg PO DAILY Ascorbic Acid [Vitamin C] 1,000 mg PO DAILY amLODIPine BESYLATE/BENAZEPRIL [Lotrel 10-40 MG] 1 cap PO DAILY Vitamin E (Dl,Tocopheryl Acet) [Vitamin E (400 Iu = 180 mg)] 400 unit PO DAILY hydroCHLOROthiazide [Hydrodiuril] 12.5 mg PO DAILY PRN PRN Reason: swelling 5Hydroxytryptophan(Oxitriptan) [5-Htp] 200 mg PO DAILY Discontinued Omeprazole Magnesium [PriLOSEC OTC] 20 mg PO DAILY No Action HYDROcodone/APAP 5-325MG [[place] 5-325] 1 tab PO Q6HR PRN 3 Days #12 tab PRN Reason: Pain Discharge Medication List 5Hydroxytryptophan(Oxitriptan) [5-Htp] 200 mg PO DAILY 01/04/22 [History] Ascorbic Acid [Vitamin C] 1,000 mg PO DAILY 01/04/22 [History] Cholecalciferol [Vitamin D3 (25 Mcg = 1000 Iu)] 25 mcg PO DAILY 01/04/22 [History] Loratadine-Pseudoeph 5-120 mg [Claritin-D 12 Hour] 1 tab PO DAILY 01/04/22 [History] Milk Thistle 150 mg PO DAILY 01/04/22 [History] Vitamin E (Dl,Tocopheryl Acet) [Vitamin E (400 Iu = 180 mg)] 400 unit PO DAILY 01/04/22 [History] amLODIPine BESYLATE/BENAZEPRIL [Lotrel 10-40 MG] 1 cap PO DAILY 01/04/22 [History] hydroCHLOROthiazide [Hydrodiuril] 12.5 mg PO DAILY PRN 01/04/22 [History] metFORMIN HCL ER [Glucophage XR] 500 mg PO DAILY 01/04/22 [History] Pantoprazole [Protonix] 40 mg PO DAILY 30 Days #30 tab 01/12/22 [Rx] Sucralfate [Carafate] 1 gm PO ACHS 30 Days #1200 ml 01/12/22 [Rx] HYDROcodone/APAP 5-325MG [[place] 5-325] 1 tab PO Q6HR PRN 3 Days #12 tab 01/14/22 [Rx] Follow up Appointment(s)/Referral(s): Marek Hathaway MD [STAFF PHYSICIAN] - 02/09/22 4:15 pm Humberto Elena MD [Primary Care Provider] - 1-2 days Jelly Cárdenas MD [STAFF PHYSICIAN] - 01/14/22 1:00 pm (evaluation of GERD) Patient Instructions/Handouts: Chest Pain (DC) Activity/Diet/Wound Care/Special Instructions: Activity: As tolerated. Take breaks as needed. Diet: Heart healthy and carb consistent diet. Avoid salts, or foods with hidden salts such as canned or boxed foods and frozen dinners. Extra salt makes your heart work harder and traps the fluid in your body for longer. Avoid lying flat during and up to 60 minutes after eating a meal. Avoid large meals and eat smaller more frequent meals. Special Instructions: Take all of your medications as directed and remember to keep all of your doctor's appointments and follow-up as needed. Thank you for allowing us to participate in your care, it was truly a pleasure having you for our patient!!! Discharge Disposition: HOME SELF-CARE
[2022-01-12] MEDS ORDERED: MAG HYDROX/AL HYDROX/SIMETH 30 ML, HYOSCYAMINE ELIXIR 10 ML, LIDOCAINE VISCOUS 2% 10 ML PO ONE ×3 (10:00)
[2022-01-12] MEDS ORDERED: ATORVASTATIN 80 MG TAB PO SCH (21:00)
[2022-01-12 23:26] LABS: LDL Cholesterol,Direct Reflex 83.9 mg/dL (0.00-129.00)
== END 2022-01-12 12:07 | disposition home or self-care (01) ==
LOC: EC 12:03 → 6NMEDSUR 14:39
PROVIDERS: ADMIT Internal Medicine; ATTEND Internal Medicine
DX: R07.89 Other chest pain (principal); R10.9 Unspecified abdominal pain; R11.2 Nausea with vomiting, unspecified; R61 Generalized hyperhidrosis; R06.02 Shortness of breath; R68.83 Chills (without fever); R42 Dizziness and giddiness; R00.0 Tachycardia, unspecified; I10 Essential (primary) hypertension; E11.9 Type 2 diabetes mellitus without complications; G43.909 Migraine, unspecified, not intractable, without status migrainosus; K21.9 Gastro-esophageal reflux disease without esophagitis; I45.10 Unspecified right bundle-branch block; E66.9 Obesity, unspecified; Z68.30 Body mass index [BMI] 30.0-30.9, adult; Z71.3 Dietary counseling and surveillance; Z79.899 Other long term (current) drug therapy; Z79.84 Long term (current) use of oral hypoglycemic drugs; Z88.0 Allergy status to penicillin; K76.0 Fatty (change of) liver, not elsewhere classified; Z82.49 Family history of ischemic heart disease and other diseases of the circulatory system
CPT/HCPCS: 96374; 99285; 36415; 93005; 80061; 80053; 80048; 83735 ×2; 84484; 85025 ×2; 85610; 85730; 83721; 80306; 71046; G0378 ×2; J2060

== ENCOUNTER 2022-01-14 13:57 | Emergency (ER) | payer BC ==
--- NOTE | 2022-01-14 19:23 | ED ---
General Adult HPI - General Chief complaint: Neck Pain/Injury Stated complaint: neck pain Time Seen by Provider: 01/14/22 14:20 Source: RN notes reviewed, old records reviewed - History of Present Illness Initial comments: Patient is a 46 year old male with past medical history remarkable for hypertension presents emergency Department complaining of neck pain. Describes it as sharp, achy located in bilateral sides of his neck. Also states for the last 2 days he has been having intermittent chest pain with radiation to both shoulders. States it is severe. States he recently was discharged following multiple stays for chest pain and recurrent troponins. Also had recent stress testing as well as echo which were within normal limits. Denies any other acute complaints at this time. Denies any abdominal pain, nausea, vomiting. His no other acute complaints at this time. Presents for further evaluation and see is uncertain the cause of his current symptoms. Denies any fevers, chills, cough. States the pain is worse with movement of his neck. Denies any posterior neck pain. Patient was seen during downtime, there was a delay in obtaining laboratory studies and workup. - Related Data Home Medications Medication Instructions Recorded Confirmed 5Hydroxytryptophan(Oxitriptan) 200 mg PO DAILY 01/04/22 01/11/22 [5-Htp] Ascorbic Acid [Vitamin C] 1,000 mg PO DAILY 01/04/22 01/11/22 Cholecalciferol [Vitamin D3 (25 25 mcg PO DAILY 01/04/22 01/11/22 Mcg = 1000 Iu)] Loratadine-Pseudoeph 5-120 mg 1 tab PO DAILY 01/04/22 01/11/22 [Claritin-D 12 Hour] Milk Thistle 150 mg PO DAILY 01/04/22 01/11/22 Vitamin E (Dl,Tocopheryl Acet) 400 unit PO DAILY 01/04/22 01/11/22 [Vitamin E (400 Iu = 180 mg)] amLODIPine BESYLATE/BENAZEPRIL 1 cap PO DAILY 01/04/22 01/11/22 [Lotrel 10-40 MG] hydroCHLOROthiazide [Hydrodiuril] 12.5 mg PO DAILY PRN 01/04/22 01/11/22 metFORMIN HCL ER [Glucophage XR] 500 mg PO DAILY 01/04/22 01/11/22 Previous Rx's Medication Instructions Recorded Pantoprazole [Protonix] 40 mg PO DAILY 30 Days #30 tab 01/12/22 Sucralfate [Carafate] 1 gm PO ACHS 30 Days #1200 ml 01/12/22 HYDROcodone/APAP 5-325MG [Blanket 1 tab PO Q6HR PRN 3 Days #12 tab 01/14/22 5-325] Allergies Allergy/AdvReac Type Severity Reaction Status Date / Time Penicillins Allergy Rash/Hives Verified 01/11/22 16:10 all over Review of Systems ROS Statement: Those systems with pertinent positive or pertinent negative responses have been documented in the HPI. Review of Systems: CONST: Denies fever EYES: Denies blurry vision ENT: Denies nasal congestion C/V: Endorses chest pain, neck pain RESP: Denies shortness of breath GI: Denies abdominal pain : Denies dysuria SKIN: Denies rash. MSK: Denies joint pain. NEURO: Denies headache ROS Other: All systems not noted in ROS Statement are negative. Past Medical History Past Medical History: Hypertension History of Any Multi-Drug Resistant Organisms: None Reported Past Surgical History: Hernia Repair Past Anesthesia/Blood Transfusion Reactions: No Reported Reaction Past Psychological History: No Psychological Hx Reported Smoking Status: Never smoker Past Alcohol Use History: Occasional Past Drug Use History: None Reported - Past Family History Mother Family Medical History: Hypertension Father Family Medical History: Hypertension General Exam - General Exam Comments Initial Comments: General: Appears in no acute distress. HEAD: Normal with no signs of head trauma. EYES: PERRLA, EOMI, conjunctiva normal, no discharge. ENT: Hearing grossly intact, normal oropharynx. No stridor. No carotid bruits. RESPIRATORY: Clear breath sounds bilaterally. No wheezes, rales, or rhonchi. C/V: Regular rate and rhythm. S1 and S2 auscultated, no edema, peripheral pulses 2+ and intact throughout ABD: Abd is soft, nontender, nondistended EXT: Normal range of motion, no obvious deformity. Has anterior neck pain bilaterally. Reproducible on palpation. No obvious defects. SKIN: No rashes or lesions observed on exposed skin. NEURO: Alert and oriented 4. No focal deficits. Medical Decision Making - Medical Decision Making Based on the patient's presentation and physical exam, he is complaining of worsening upper chest pain as well as neck pain over the last 2 days with a ripping sensation and tearing sensation towards the shoulders. He recently had a thorough workup, however cannot rule out the possibility of dissection at this time as the other his carotids are aorta. Therefore I did recommend we obtain CT angiogram imaging as well as a cardiac workup. He was in agreement this plan. We'll be administered analgesia for his pain. EKG showed no signs of acute ischemia. Troponin is undetected in the setting of 2 days of upper chest, neck pain. Remainder the labs are relatively unremarkable. Brain CT shows no acute intracranial hemorrhage, mass effect or midline shift. Neck CTA no evidence of dissection or other abnormality at this time. CT angiogram of the chest, abdomen, pelvis revealed no evidence of dissection or abnormality at this time. I discussed the results with the radiologist. There was a long delay in obtaining workup due to the emergency department and hospital having downtown services for the computer system. Upon return of labs and imaging, did discuss the findings with the patient. He is feeling improved at this time. Vital signs have remained within normal limits. Tachycardia has resolved. I did discuss with him that due to his recent negative cardiac workup over the last few weeks, recent negative stress test and echo, as well as symptoms for 2 days and having a normal workup today, I believe it is safe for discharge home. I did offer him admission, however he also agrees that he would like to go home at this time. Heart scores low at 2. He'll follow-up with his PCP. Pain could be likely secondary to muscular skeletal causes. Recommended close follow-up. I will provide the patient with a prescription for Blanket 5. I instructed the patient to follow up with their PCP in the next 3 days. I explained that the patient should return to the emergency department if they experience any worsening symptoms. Strict return precautions were discussed with the patient. The patient expressed understanding of these instructions. I answered all questions that the patient had. The patient was discharged home in good condition with their prescriptions and follow up information. - Lab Data Result diagrams: 01/14/22 15:05 01/14/22 15:05 Lab Results 01/14/22 01/14/22 01/14/22 Range/Units 15:05 15:05 15:05 WBC 6.8 (3.8-10.6) k/uL RBC 4.84 (4.30-5.90) m/uL Hgb 15.8 (13.0-17.5) gm/dL Hct 47.1 (39.0-53.0) % MCV 97.3 (80.0-100.0) fL MCH 32.7 (25.0-35.0) pg MCHC 33.6 (31.0-37.0) g/dL RDW 12.5 (11.5-15.5) % Plt Count 322 (150-450) k/uL MPV 8.1 Neutrophils % 81 % Lymphocytes % 10 % Monocytes % 5 % Eosinophils % 0 % Basophils % 1 % Neutrophils # 5.4 (1.3-7.7) k/uL Lymphocytes # 0.7 L (1.0-4.8) k/uL Monocytes # 0.4 (0-1.0) k/uL Eosinophils # 0.0 (0-0.7) k/uL Basophils # 0.1 (0-0.2) k/uL PT (9.0-12.0) sec INR (<1.2) APTT (22.0-30.0) sec Sodium 135 L (137-145) mmol/L Potassium 3.8 (3.5-5.1) mmol/L Chloride 100 (98-107) mmol/L Carbon Dioxide 25 (22-30) mmol/L Anion Gap 10 mmol/L BUN 10 (9-20) mg/dL Creatinine 1.05 (0.66-1.25) mg/dL Est GFR (CKD-EPI)AfAm >90 (>60 ml/min/1.73 sqM) Est GFR (CKD-EPI)NonAf 85 (>60 ml/min/1.73 sqM) Glucose 104 H (74-99) mg/dL Calcium 9.1 (8.4-10.2) mg/dL Total Bilirubin 1.6 H (0.2-1.3) mg/dL AST 34 (17-59) U/L ALT 38 (4-49) U/L Alkaline Phosphatase 58 (38-126) U/L Troponin I <0.012 (0.000-0.034) ng/mL Total Protein 7.4 (6.3-8.2) g/dL Albumin 4.5 (3.5-5.0) g/dL 01/14/22 Range/Units 15:05 WBC (3.8-10.6) k/uL RBC (4.30-5.90) m/uL Hgb (13.0-17.5) gm/dL Hct (39.0-53.0) % MCV (80.0-100.0) fL MCH (25.0-35.0) pg MCHC (31.0-37.0) g/dL RDW (11.5-15.5) % Plt Count (150-450) k/uL MPV Neutrophils % % Lymphocytes % % Monocytes % % Eosinophils % % Basophils % % Neutrophils # (1.3-7.7) k/uL Lymphocytes # (1.0-4.8) k/uL Monocytes # (0-1.0) k/uL Eosinophils # (0-0.7) k/uL Basophils # (0-0.2) k/uL PT 10.6 (9.0-12.0) sec INR 1.0 (<1.2) APTT 25.1 (22.0-30.0) sec Sodium (137-145) mmol/L Potassium (3.5-5.1) mmol/L Chloride (98-107) mmol/L Carbon Dioxide (22-30) mmol/L Anion Gap mmol/L BUN (9-20) mg/dL Creatinine (0.66-1.25) mg/dL Est GFR (CKD-EPI)AfAm (>60 ml/min/1.73 sqM) Est GFR (CKD-EPI)NonAf (>60 ml/min/1.73 sqM) Glucose (74-99) mg/dL Calcium (8.4-10.2) mg/dL Total Bilirubin (0.2-1.3) mg/dL AST (17-59) U/L ALT (4-49) U/L Alkaline Phosphatase (38-126) U/L Troponin I (0.000-0.034) ng/mL Total Protein (6.3-8.2) g/dL Albumin (3.5-5.0) g/dL - EKG Data -: EKG Interpreted by Me EKG Comments: 12-lead Electrocardiogram Interpretation Note EKG was reviewed and interpreted by myself. 12-lead ECG performed at 1400 is interpreted by me as revealing normal sinus rhythm at a rate of 110 beats per minute. Aneta is normal. IL interval is 181 ms, QRS duration is 121 ms, QTc is 407 ms.. There were no ST or T wave abnormalities to suggest myocardial ischemia or injury. R wave progression across the precordium was satisfactory. By my interpretation this EKG is non-diagnostic for acute ischemia. Disposition Clinical Impression: Neck pain, Chronic chest pain Disposition: HOME SELF-CARE Condition: Good Instructions (If sedation given, give patient instructions): Chest Pain (ED) Prescriptions: HYDROcodone/APAP 5-325MG [Blanket 5-325] 1 tab PO Q6HR PRN 3 Days #12 tab PRN Reason: Pain Is patient prescribed a controlled substance at d/c from ED?: Yes When asked, does pt state using other controlled substances?: No If prescribed controlled substance>3 days was MAPS reviewed?: Prescribed <3 Days If opioid is for acute pain is fill amount 7 days or less?: Yes If Rx opioid, was Start Talking consent form obtained?: Yes Referrals: Humberto Elena MD [Primary Care Provider] - 1-2 days Time of Disposition: 19:00
--- NOTE | 2022-01-14 19:51 | CT ---
EXAMINATION TYPE: CT brain wo con DATE OF EXAM: 01/14/2022 COMPARISON: CT brain dated 01/04/2022 HISTORY: Dissection, headache and hypertension CT DLP: 1206 mGycm. Automated Exposure Control for Dose Reduction was Utilized. TECHNIQUE: CT scan of the head is performed without contrast. FINDINGS: There is no acute intracranial hemorrhage, mass effect, or midline shift identified. The ventricles and sulci are within normal limits in size. The globes are intact and the visualized sin uses are showing lobular soft tissue suggestive of possible mucus retention cysts or polyps. IMPRESSION: No acute intracranial hemorrhage, mass effect, or midline shift is seen. Stable exam. Ch ronic sinus disease.
--- NOTE | 2022-01-14 19:53 | CT ---
EXAMINATION TYPE: CT angio neck DATE OF EXAM: 01/14/2022 HISTORY: Dissection COMPARISON: None CT DLP: 587.7 mGycm. Automated Exposure Control for Dose Reduction was Utilized. TECHNIQUE: CTA scan of the head and neck is performed with IV Contrast, patient injected with 125 mL of Isovue 370, axial images are obtained, coronal and sagittal reformatted images are reviewed. 3D r econstructed images are created on an independent workstation and reviewed. FINDINGS: Right Carotid System: The common carotid artery and external carotid artery are patent. The carotid bifurcation demonstrate s no evidence of hemodynamically significant stenosis. The remaining portions of the internal carotid artery demonstrate normal size without significant narrowing. Left Carotid System: The common carotid artery and external carotid artery are patent. The carotid bifurcation demonstrate s no evidence of hemodynamically significant stenosis. The remaining portions of the internal carotid artery demonstrate normal size without significant narrowing. Vertebral arteries are patent without evidence hemodynamically significant stenosis. The right verteb ral artery terminates as a posterior inferior cerebellar artery. There is dominant left vertebral art michelle. There is a three-vessel aortic arch. The origins of the great vessels are patent. No evidence of hemo dynamically significant stenosis. IMPRESSION: No evidence of dissection of the cervical internal carotid arteries or vertebral arteries or any evid ence of significant stenosis at the carotid bifurcations.
--- NOTE | 2022-01-14 20:00 | CT ---
EXAMINATION TYPE: CT ChestAbdPelvis w con CT DLP: 1217 mGycm, Automated exposure control for dose reduction was used. DATE OF EXAM: 01/14/2022 7:29 PM COMPARISON: Chest radiograph 01/11/2022 CLINICAL INDICATION:Male, 46 years old with history of dissection; Technique: Multiple axial images of the chest, abdomen, and pelvis were obtained following the intrav enous administration of 100 mL Isovue-300. Two-dimensional coronal and sagittal reconstructions were obtained. Findings: CHEST: LUNGS/ PLEURA: The lung parenchyma appears unremarkable. AIRWAY: Patent and unremarkable.. HEART: Size within normal limits. . MEDIASTINUM: No gross evidence of adenopathy. VASCULATURE: No aortic aneurysm. No evidence aortic dissection. MUSCULOSKELETAL: No acute osseous abnormalities. SOFT TISSUES/LYMPH NODES: Mild left gynecomastia changes. LOWER NECK: No significant findings. ABDOMEN: ABDOMEN LIVER: Right hepatic cyst measuring 17 mm. GALLBLADDER AND BILE DUCTS: Unremarkable. PANCREAS: Unremarkable. SPLEEN: Unremarkable. ADRENAL GLANDS: Unremarkable. KIDNEYS AND URETERS: No evidence of hydronephrosis or renal calculus. The ureters are unremarkable. E xcreted IV contrast from prior study is in the collecting system. PELVIS BLADDER: Unremarkable REPRODUCTIVE: Unremarkable. ABDOMEN & PELVIS STOMACH AND BOWEL: No evidence of bowel obstruction. PERITONEUM: No evidence of pneumoperitoneum or free fluid. VASCULATURE: No evidence of aortic aneurysm. MUSCULOSKELETAL: Mild disc degeneration changes are present throughout the thoracolumbar spine. LYMPH NODES: No gross evidence for lymphadenopathy. SOFT TISSUE/ABDOMINAL WALL: Unremarkable IMPRESSION: 1. No evidence aortic dissection. 2. No evidence for acute process within the chest abdomen or pelvis.
[2022-01-14 20:10] LABS: Basophils # (A) 0.1 k/uL (0-0.2); Basophils % (A) 1 %; Eosinophils % (A) 0 %; HCT 47.1 % (39.0-53.0); HGB 15.8 gm/dL (13.0-17.5); Lymphocytes # (A) 0.7 k/uL (1.0-4.8); Lymphocytes % (A) 10 %; MCH 32.7 pg (25.0-35.0); MCHC 33.6 g/dL (31.0-37.0); MCV 97.3 fL (80.0-100.0); Mean Platelet Volume 8.1; Monocytes # (A) 0.4 k/uL (0-1.0); Monocytes % (A) 5 %; Neutrophils # (A) 5.4 k/uL (1.3-7.7); Neutrophils % (A) 81 %; Platelet Count 322 k/uL (150-450); RBC 4.84 m/uL (4.30-5.90); RDW 12.5 % (11.5-15.5); WBC 6.8 k/uL (3.8-10.6)
[2022-01-14 20:11] LABS: Partial Thromboplastin Time 25.1 sec (22.0-30.0); Prothrombin Time 10.6 sec (9.0-12.0)
[2022-01-14 20:12] LABS: ALT 38 U/L (4-49); AST 34 U/L (17-59); African American GFR (CKD) >90 (>60 ml/min/1.73 sqM); Albumin 4.5 g/dL (3.5-5.0); Alkaline Phosphatase 58 U/L (38-126); Anion Gap 10 mmol/L; Blood Urea Nitrogen 10 mg/dL (9-20); Calcium 9.1 mg/dL (8.4-10.2); Carbon Dioxide 25 mmol/L (22-30); Chloride 100 mmol/L (98-107); Glucose 104 mg/dL (74-99); Non-African American GFR(CKD) 85 (>60 ml/min/1.73 sqM); Potassium 3.8 mmol/L (3.5-5.1); Sodium 135 mmol/L (137-145); Total Bilirubin 1.6 mg/dL (0.2-1.3); Total Protein 7.4 g/dL (6.3-8.2)
== END 2022-01-14 19:50 | disposition home or self-care (01) ==
LOC: EC 13:57
DX: G89.29 Other chronic pain (principal); R07.89 Other chest pain; M54.2 Cervicalgia; I10 Essential (primary) hypertension; Z79.84 Long term (current) use of oral hypoglycemic drugs; Z79.899 Other long term (current) drug therapy
CPT/HCPCS: 36415; 80053; 84484; 85025; 85610; 85730; 70450; 71260; 70498; 74177; 99285; Q9967

== ENCOUNTER 2022-01-22 22:31 | Emergency (ER) | payer BC ==
[2022-01-22 23:17] LABS: Basophils # (A) 0.1 k/uL (0-0.2); Basophils % (A) 1 %; Eosinophils # (A) 0.2 k/uL (0-0.7); Eosinophils % (A) 3 %; HCT 47.9 % (39.0-53.0); HGB 16.1 gm/dL (13.0-17.5); Lymphocytes # (A) 2.1 k/uL (1.0-4.8); Lymphocytes % (A) 30 %; MCH 32.4 pg (25.0-35.0); MCHC 33.6 g/dL (31.0-37.0); MCV 96.6 fL (80.0-100.0); Mean Platelet Volume 7.6; Monocytes # (A) 0.3 k/uL (0-1.0); Monocytes % (A) 5 %; Neutrophils % (A) 58 %; Platelet Count 335 k/uL (150-450); RBC 4.97 m/uL (4.30-5.90); RDW 12.6 % (11.5-15.5); WBC 6.9 k/uL (3.8-10.6)
--- NOTE | 2022-01-22 23:23 | XR ---
EXAMINATION TYPE: XR chest 2V DATE OF EXAM: 01/22/2022 COMPARISON: 01/11/2022 HISTORY: Chest pain TECHNIQUE: 2 views FINDINGS: Heart and mediastinum are normal. Lungs are clear. Diaphragm is normal. Bony thorax appears normal. IMPRESSION: Normal chest. No change.
[2022-01-22 23:24] LABS: Appearance,Urine Clear (Clear); Bilirubin,Urine Negative (Negative); Blood,Urine Negative (Negative); Color,Urine Colorless; Glucose,Urine (UA) Negative (Negative); Ketones,Urine Negative (Negative); Leukocyte Esterase,Urine Negative (Negative); Nitrite,Urine Negative (Negative); PH, Urine 5.5 (5.0-8.0); Protein,Urine Negative (Negative); Specific Gravity,Urine 1.002 (1.001-1.035); Urobilinogen,Urine <2.0 mg/dL (<2.0)
--- NOTE | 2022-01-22 23:24 | XR ---
EXAMINATION TYPE: XR KUB DATE OF EXAM: 01/22/2022 COMPARISON: NONE HISTORY: Abdominal pain TECHNIQUE: 2 views upright FINDINGS: Bowel gas pattern is normal. No sign of intestinal obstruction or pneumoperitoneum. Fecal p attern is normal. No sign of a mass. IMPRESSION: Nonacute abdomen.
[2022-01-23] LABS: ALT 41 U/L (4-49)
[2022-01-23 00:13] LABS: Troponin I <0.012 ng/mL (0.000-0.034)
[2022-01-23 00:28] LABS: Creatine Kinase 362 U/L (55-170); Creatine Kinase MB 2.5 ng/mL (0.0-2.4)
--- NOTE | 2022-01-23 00:45 | ED ---
Abdominal Pain HPI - General Chief Complaint: Abdominal Pain Stated Complaint: Chest pain/abd pain/hypertension Time Seen by Provider: 01/22/22 23:32 Source: patient Mode of arrival: wheelchair Limitations: no limitations - History of Present Illness Initial Comments: This patient is 46-year-old man who presents to be evaluated for left lower quadrant pain that is been somewhat intermittent, cramping in character. He has not noted worsening or relieving factors. Patient has had evaluation for this previously and states he is scheduled to follow-up with the operational risk analyst for endoscopy but that the pain was a little worse recently. MD Complaint: abdominal pain Onset/Timin -: week(s) Location: LLQ Radiation: none Migration to: no migration Severity: moderate Quality: cramping Consistency: intermittent Improves With: nothing Worsens With: nothing Associated Symptoms: denies other symptoms - Related Data Home Medications Medication Instructions Recorded Confirmed 5Hydroxytryptophan(Oxitriptan) 200 mg PO DAILY 01/04/22 01/14/22 [5-Htp] Ascorbic Acid [Vitamin C] 1,000 mg PO DAILY 01/04/22 01/14/22 Cholecalciferol [Vitamin D3 (25 25 mcg PO DAILY 01/04/22 01/14/22 Mcg = 1000 Iu)] Loratadine-Pseudoeph 5-120 mg 1 tab PO DAILY 01/04/22 01/14/22 [Claritin-D 12 Hour] Milk Thistle 150 mg PO DAILY 01/04/22 01/14/22 Vitamin E (Dl,Tocopheryl Acet) 400 unit PO DAILY 01/04/22 01/14/22 [Vitamin E (400 Iu = 180 mg)] amLODIPine BESYLATE/BENAZEPRIL 1 cap PO DAILY 01/04/22 01/14/22 [Lotrel 10-40 MG] hydroCHLOROthiazide [Hydrodiuril] 12.5 mg PO DAILY PRN 01/04/22 01/14/22 metFORMIN HCL ER [Glucophage XR] 500 mg PO DAILY 01/04/22 01/14/22 Previous Rx's Medication Instructions Recorded Pantoprazole [Protonix] 40 mg PO DAILY 30 Days #30 tab 01/12/22 Sucralfate [Carafate] 1 gm PO ACHS 30 Days #1200 ml 01/12/22 HYDROcodone/APAP 5-325MG [[place] 1 tab PO Q6HR PRN 3 Days #12 tab 01/14/22 5-325] Dicyclomine [Bentyl] 20 mg PO QID #15 tablet 01/23/22 Allergies Allergy/AdvReac Type Severity Reaction Status Date / Time Penicillins Allergy Rash/Hives Verified 01/11/22 16:10 all over Review of Systems ROS Statement: Those systems with pertinent positive or pertinent negative responses have been documented in the HPI. ROS Other: All systems not noted in ROS Statement are negative. Constitutional: Denies: fever, chills Respiratory: Denies: cough, dyspnea Cardiovascular: Denies: chest pain, palpitations Gastrointestinal: Reports: abdominal pain. Denies: diarrhea, melena, hematochezia Genitourinary: Denies: dysuria, hematuria, testicular pain, testicular mass Musculoskeletal: Denies: back pain Skin: Denies: rash Neurological: Denies: headache Past Medical History Past Medical History: Hypertension History of Any Multi-Drug Resistant Organisms: None Reported Past Surgical History: Hernia Repair Past Anesthesia/Blood Transfusion Reactions: No Reported Reaction Past Psychological History: No Psychological Hx Reported Smoking Status: Never smoker Past Alcohol Use History: Occasional Past Drug Use History: None Reported - Past Family History Mother Family Medical History: Hypertension Father Family Medical History: Hypertension General Exam Limitations: no limitations General appearance: alert, in no apparent distress Head exam: Present: atraumatic, normocephalic Eye exam: Present: normal appearance. Absent: scleral icterus, conjunctival injection Neck exam: Present: normal inspection Respiratory exam: Present: normal lung sounds bilaterally. Absent: respiratory distress, wheezes, rales, rhonchi, stridor Cardiovascular Exam: Present: regular rate, normal rhythm, normal heart sounds. Absent: systolic murmur, diastolic murmur, rubs, gallop GI/Abdominal exam: Present: soft, tenderness (Mild tenderness left lower quadrant), normal bowel sounds. Absent: distended, guarding, rebound, rigid, mass, pulsatile mass, hernia Extremities exam: Present: normal inspection, normal capillary refill. Absent: pedal edema, calf tenderness Back exam: Present: normal inspection. Absent: CVA tenderness (R), CVA tenderness (L) Neurological exam: Present: alert Skin exam: Present: warm, dry, intact, normal color. Absent: rash Course Vital Signs 01/22/22 01/23/22 01/23/22 22:34 04:00 05:26 Temperature 97.8 F 98.3 F Pulse Rate 82 78 87 Respiratory 18 20 20 Rate Blood Pressure 163/97 156/76 149/76 O2 Sat by Pulse 100 97 98 Oximetry Medical Decision Making - Lab Data Result diagrams: 01/22/22 22:57 01/22/22 22:57 Lab Results 01/22/22 01/22/22 01/22/22 Range/Units 22:57 22:57 22:57 WBC 6.9 (3.8-10.6) k/uL RBC 4.97 (4.30-5.90) m/uL Hgb 16.1 (13.0-17.5) gm/dL Hct 47.9 (39.0-53.0) % MCV 96.6 (80.0-100.0) fL MCH 32.4 (25.0-35.0) pg MCHC 33.6 (31.0-37.0) g/dL RDW 12.6 (11.5-15.5) % Plt Count 335 (150-450) k/uL MPV 7.6 Neutrophils % 58 % Lymphocytes % 30 % Monocytes % 5 % Eosinophils % 3 % Basophils % 1 % Neutrophils # 4.0 (1.3-7.7) k/uL Lymphocytes # 2.1 (1.0-4.8) k/uL Monocytes # 0.3 (0-1.0) k/uL Eosinophils # 0.2 (0-0.7) k/uL Basophils # 0.1 (0-0.2) k/uL Sodium 138 (137-145) mmol/L Potassium 4.0 (3.5-5.1) mmol/L Chloride 103 (98-107) mmol/L Carbon Dioxide 22 (22-30) mmol/L Anion Gap 13 mmol/L BUN 6 L (9-20) mg/dL Creatinine 0.84 (0.66-1.25) mg/dL Est GFR (CKD-EPI)AfAm >90 (>60 ml/min/1.73 sqM) Est GFR (CKD-EPI)NonAf >90 (>60 ml/min/1.73 sqM) Glucose 96 (74-99) mg/dL Lactic Ac Sepsis Rflx Plasma Lactic Acid Karlo (0.7-2.0) mmol/L Calcium 9.8 (8.4-10.2) mg/dL Total Bilirubin 1.7 H (0.2-1.3) mg/dL AST 36 (17-59) U/L ALT 41 (4-49) U/L Alkaline Phosphatase 64 (38-126) U/L Total Creatine Kinase (55-170) U/L CK-MB (CK-2) (0.0-2.4) ng/mL CK-MB (CK-2) Rel Index Troponin I (0.000-0.034) ng/mL Total Protein 8.0 (6.3-8.2) g/dL Albumin 5.0 (3.5-5.0) g/dL Amylase 82 (30-110) U/L Lipase 143 (23-300) U/L Urine Color Colorless Urine Appearance Clear (Clear) Urine pH 5.5 (5.0-8.0) Ur Specific [place] 1.002 (1.001-1.035) Urine Protein Negative (Negative) Urine Glucose (UA) Negative (Negative) Urine Ketones Negative (Negative) Urine Blood Negative (Negative) Urine Nitrite Negative (Negative) Urine Bilirubin Negative (Negative) Urine Urobilinogen <2.0 (<2.0) mg/dL Ur Leukocyte Esterase Negative (Negative) 01/22/22 01/22/22 01/23/22 Range/Units 22:57 22:57 00:29 WBC (3.8-10.6) k/uL RBC (4.30-5.90) m/uL Hgb (13.0-17.5) gm/dL Hct (39.0-53.0) % MCV (80.0-100.0) fL MCH (25.0-35.0) pg MCHC (31.0-37.0) g/dL RDW (11.5-15.5) % Plt Count (150-450) k/uL MPV Neutrophils % % Lymphocytes % % Monocytes % % Eosinophils % % Basophils % % Neutrophils # (1.3-7.7) k/uL Lymphocytes # (1.0-4.8) k/uL Monocytes # (0-1.0) k/uL Eosinophils # (0-0.7) k/uL Basophils # (0-0.2) k/uL Sodium (137-145) mmol/L Potassium (3.5-5.1) mmol/L Chloride (98-107) mmol/L Carbon Dioxide (22-30) mmol/L Anion Gap mmol/L BUN (9-20) mg/dL Creatinine (0.66-1.25) mg/dL Est GFR (CKD-EPI)AfAm (>60 ml/min/1.73 sqM) Est GFR (CKD-EPI)NonAf (>60 ml/min/1.73 sqM) Glucose (74-99) mg/dL Lactic Ac Sepsis Rflx Y Plasma Lactic Acid Karlo 2.3 H* (0.7-2.0) mmol/L Calcium (8.4-10.2) mg/dL Total Bilirubin (0.2-1.3) mg/dL AST (17-59) U/L ALT (4-49) U/L Alkaline Phosphatase (38-126) U/L Total Creatine Kinase 362 H (55-170) U/L CK-MB (CK-2) 2.5 H (0.0-2.4) ng/mL CK-MB (CK-2) Rel Index 0.7 Troponin I <0.012 (0.000-0.034) ng/mL Total Protein (6.3-8.2) g/dL Albumin (3.5-5.0) g/dL Amylase (30-110) U/L Lipase (23-300) U/L Urine Color Urine Appearance (Clear) Urine pH (5.0-8.0) Ur Specific [place] (1.001-1.035) Urine Protein (Negative) Urine Glucose (UA) (Negative) Urine Ketones (Negative) Urine Blood (Negative) Urine Nitrite (Negative) Urine Bilirubin (Negative) Urine Urobilinogen (<2.0) mg/dL Ur Leukocyte Esterase (Negative) 01/23/22 Range/Units 03:27 WBC (3.8-10.6) k/uL RBC (4.30-5.90) m/uL Hgb (13.0-17.5) gm/dL Hct (39.0-53.0) % MCV (80.0-100.0) fL MCH (25.0-35.0) pg MCHC (31.0-37.0) g/dL RDW (11.5-15.5) % Plt Count (150-450) k/uL MPV Neutrophils % % Lymphocytes % % Monocytes % % Eosinophils % % Basophils % % Neutrophils # (1.3-7.7) k/uL Lymphocytes # (1.0-4.8) k/uL Monocytes # (0-1.0) k/uL Eosinophils # (0-0.7) k/uL Basophils # (0-0.2) k/uL Sodium (137-145) mmol/L Potassium (3.5-5.1) mmol/L Chloride (98-107) mmol/L Carbon Dioxide (22-30) mmol/L Anion Gap mmol/L BUN (9-20) mg/dL Creatinine (0.66-1.25) mg/dL Est GFR (CKD-EPI)AfAm (>60 ml/min/1.73 sqM) Est GFR (CKD-EPI)NonAf (>60 ml/min/1.73 sqM) Glucose (74-99) mg/dL Lactic Ac Sepsis Rflx Plasma Lactic Acid Karlo 0.7 (0.7-2.0) mmol/L Calcium (8.4-10.2) mg/dL Total Bilirubin (0.2-1.3) mg/dL AST (17-59) U/L ALT (4-49) U/L Alkaline Phosphatase (38-126) U/L Total Creatine Kinase (55-170) U/L CK-MB (CK-2) (0.0-2.4) ng/mL CK-MB (CK-2) Rel Index Troponin I (0.000-0.034) ng/mL Total Protein (6.3-8.2) g/dL Albumin (3.5-5.0) g/dL Amylase (30-110) U/L Lipase (23-300) U/L Urine Color Urine Appearance (Clear) Urine pH (5.0-8.0) Ur Specific [place] (1.001-1.035) Urine Protein (Negative) Urine Glucose (UA) (Negative) Urine Ketones (Negative) Urine Blood (Negative) Urine Nitrite (Negative) Urine Bilirubin (Negative) Urine Urobilinogen (<2.0) mg/dL Ur Leukocyte Esterase (Negative) - EKG Data -: EKG Interpreted by Ia EKG shows normal: sinus rhythm, axis (Borderline left axis deviation), intervals (Respirations 120 ms, borderline for prolonged. DC 162 ms, QTC 420 ms, both normal.), QRS complexes (Possible right ventricular conduction delay.) Rate: normal (Rate 80 bpm) Disposition Clinical Impression: Abdominal pain Disposition: HOME SELF-CARE Condition: Good Instructions (If sedation given, give patient instructions): Abdominal Pain (ED) Prescriptions: Dicyclomine [Bentyl] 20 mg PO QID #15 tablet Is patient prescribed a controlled substance at d/c from ED?: No Referrals: Humberto Elena MD [Primary Care Provider] - 1-2 days
[2022-01-23] MEDS ORDERED: SODIUM CHLORIDE 0.9% 500 ML 500 ML IV STA (00:50)
[2022-01-23] MEDS ORDERED: MORPHINE SULFATE 4 MG/ML SYRINGE IV STA (00:50)
--- NOTE | 2022-01-23 02:08 | CT ---
EXAMINATION TYPE: CT abdomen pelvis wo con DATE OF EXAM: 01/23/2022 COMPARISON: 01/14/2022 HISTORY: LLQ pain CT DLP: 790.9 mGycm Automated exposure control for dose reduction was used. Images obtained from the diaphragm to the floor of the pelvis with no contrast. Lung bases are clear. No pleural effusion. Heart size is normal. No pericardial effusion. Liver splee n and stomach pancreas gallbladder appear intact. There is 1.5 cm rounded fluid density in the medial right lobe of the liver of doubtful significance and likely a cyst. The bile ducts are nondilated. T here is no adrenal mass. Kidneys show normal size and contour. No hydronephrosis. The ureters are not dilated. There is no retroperitoneal adenopathy. Appendix is posterior and appears normal. The bladder distends smoothly. No inguinal hernia. No free fluid in the pelvis. No sign of a pelvic m ass. There is no mesenteric edema. No ascites or free air. No sign of a bowel obstruction. The lumbar vertebra appear intact. No compression fracture. Mild anterior spurring in the lower lumba r spine. The hip joints are intact. Facet joints are intact. IMPRESSION: No acute abnormality of the abdomen and pelvis. Normal appendix. No adverse change compared to old ex am.
[2022-01-23 02:26] LABS: AST 36 U/L (17-59); African American GFR (CKD) >90 (>60 ml/min/1.73 sqM); Alkaline Phosphatase 64 U/L (38-126); Amylase 82 U/L (30-110); Anion Gap 13 mmol/L; Blood Urea Nitrogen 6 mg/dL (9-20); Calcium 9.8 mg/dL (8.4-10.2); Carbon Dioxide 22 mmol/L (22-30); Chloride 103 mmol/L (98-107); Glucose 96 mg/dL (74-99); Lipase 143 U/L (23-300); Non-African American GFR(CKD) >90 (>60 ml/min/1.73 sqM); Sodium 138 mmol/L (137-145); Total Bilirubin 1.7 mg/dL (0.2-1.3)
[2022-01-23] MEDS ORDERED: DICYCLOMINE 20 MG TAB PO STA (04:01)
[2022-01-23 04:32] VITALS: RESP 20; TEMP 98.3
[2022-01-23] MEDS ORDERED: MAG HYDROX/AL HYDROX/SIMETH 30 ML, HYOSCYAMINE ELIXIR 10 ML, LIDOCAINE VISCOUS 2% 10 ML PO STA ×3 (05:04)
[2022-01-23 05:27] VITALS: BP 149/76; PULSE 87
== END 2022-01-23 05:27 | disposition home or self-care (01) ==
LOC: EC 22:31
DX: R10.32 Left lower quadrant pain (principal); I10 Essential (primary) hypertension; Z79.899 Other long term (current) drug therapy
CPT/HCPCS: 36415 ×2; 93005; 80053; 82150; 82550; 82553; 83605 ×2; 83690; 84484; 85025; 81003; 71046; 74018; 74176; 99284; 96374; 96361 ×3; J2270

== ENCOUNTER → 2022-03-16 | Outpatient (CLI) | payer BC ==
--- NOTE | 2022-03-16 10:43 | US ---
EXAMINATION TYPE: US abdomen limited DATE OF EXAM: 03/16/2022 COMPARISON: NONE CLINICAL HISTORY: R10.9 Abd wall pain. constant abdominal pain near umbilicus, no lump or bulge scanned area of concern, abdominal wall near umbilicus. unable to identify any abnormality by ultraso und at this time IMPRESSION: No sonographic abnormality.
== END | disposition home or self-care (01) ==
LOC: RADUSWWP 10:14
PROVIDERS: ATTEND Family Medicine
DX: R10.9 Unspecified abdominal pain (principal)
CPT/HCPCS: 76705

== ENCOUNTER → 2022-04-07 | Outpatient (CLI) | payer BC ==
--- NOTE | 2022-04-07 11:10 | NM ---
EXAMINATION TYPE: NM hepatobiliary w EF DATE OF EXAM: 04/07/2022 COMPARISON: CT abdomen pelvis 02/08/2022, abdominal ultrasound 03/16/2022. HISTORY: Abnormal levels of other serum R 74.8 TECHNIQUE: After the intravenous administration of 4.4 mCi Tc 99m Mebrofenin hepatobiliary scintigrap hy is performed. Immediate images post injection. FINDINGS: There is satisfactory initial accumulation of tracer by the liver. The gallbladder is visualized wit hin 2 minutes. The small bowel activity is noted within 34 minutes. At one hour 8 ounces of oral en sure plus is given to mimic CCK and gallbladder ejection fraction is calculated at 89 %, in the chen l range. Therefore there is no scintigraphic evidence of cystic or common bile duct obstruction to s uggest acute cholecystitis or gallbladder dyskinesia. IMPRESSION: Exam is within normal limits.
== END | disposition home or self-care (01) ==
LOC: RADNMMAIN 07:04
PROVIDERS: ATTEND Family Medicine
DX: R74.8 Abnormal levels of other serum enzymes (principal)
CPT/HCPCS: 78226; A9537

== ENCOUNTER 2022-04-29 18:34 | Observation (INO) | payer BC ==
[2022-04-29] MEDS ORDERED: SODIUM CHLORIDE 0.9% 1,000 ML IV STA (18:37)
--- NOTE | 2022-04-29 18:41 | ED ---
General Adult HPI - General Stated complaint: syncope Time Seen by Provider: 04/29/22 18:37 Source: patient, EMS, RN notes reviewed Mode of arrival: EMS Limitations: no limitations - History of Present Illness Initial comments: Patient is a pleasant 46-year-old male presenting to the emergency department for a single episode. Episode occurred prior to arrival patient was at a reversal dinner. Patient noticed burning in his chest after this event. Discomfort is improved with medication by EMS. No headache or confusion. No weakness. Patient did have a syncopal episode 1 week ago as well. - Related Data Home Medications Medication Instructions Recorded Confirmed amLODIPine BESYLATE/BENAZEPRIL 1 cap PO DAILY 01/04/22 04/29/22 [Lotrel 10-40 MG] Escitalopram [Lexapro] 10 mg PO DAILY 04/29/22 04/29/22 Ibuprofen [Motrin] 800 mg PO Q8H PRN 04/29/22 04/29/22 Netarsudil Mesylat/Latanoprost 1 drop BOTH EYES HS 04/29/22 04/29/22 [Rocklatan 0.02%-0.005% Eye Drp] Previous Rx's Medication Instructions Recorded Pantoprazole [Protonix] 40 mg PO DAILY 30 Days #30 tab 01/12/22 Dicyclomine [Bentyl] 20 mg PO QID #15 tablet 01/23/22 Allergies Allergy/AdvReac Type Severity Reaction Status Date / Time Penicillins Allergy Rash/Hives Verified 04/29/22 21:02 all over Review of Systems ROS Statement: Those systems with pertinent positive or pertinent negative responses have been documented in the HPI. ROS Other: All systems not noted in ROS Statement are negative. Constitutional: Denies: fever Eyes: Denies: eye pain ENT: Denies: ear pain Respiratory: Denies: cough, dyspnea Cardiovascular: Reports: chest pain Endocrine: Denies: fatigue Gastrointestinal: Denies: abdominal pain Genitourinary: Denies: dysuria Musculoskeletal: Denies: back pain Skin: Denies: rash Neurological: Denies: headache, weakness, numbness, paresthesias, confusion, vertigo Past Medical History Past Medical History: Hypertension History of Any Multi-Drug Resistant Organisms: None Reported Past Surgical History: Hernia Repair Past Anesthesia/Blood Transfusion Reactions: No Reported Reaction Past Psychological History: No Psychological Hx Reported Smoking Status: Never smoker Past Alcohol Use History: Occasional Past Drug Use History: None Reported - Past Family History Mother Family Medical History: Hypertension Father Family Medical History: Hypertension General Exam Limitations: no limitations General appearance: alert, in no apparent distress Head exam: Present: atraumatic, normocephalic Eye exam: Present: normal appearance, PERRL, EOMI ENT exam: Present: normal oropharynx Neck exam: Present: normal inspection. Absent: tenderness Respiratory exam: Present: normal lung sounds bilaterally. Absent: chest wall tenderness Cardiovascular Exam: Present: regular rate, normal rhythm Expanded Peripheral pulses: 2+: Radial (R), Radial (L), Posterior Tibialis (R), Posterior Tibialis (L) GI/Abdominal exam: Present: soft. Absent: distended, tenderness, pulsatile mass Extremities exam: Present: normal inspection. 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 Family has arrived and noticed some speech problems. Patient does have garbled speech that is waxing and waning. No extremity weakness. No facial weakness. Cranial nerves II-12 intact. Sensation of the face is intact. Patient states decreased sensation bilateral upper greater than lower extremities. Code stroke was called. Last known well will be timed at 1900. Patient has been having some anxiety recently however patient does not feel the symptoms are anxiety related. Patient did recently start anxiety medications and this was recently increased. Patient is also recently been evaluated for previous episodes of abdominal or chest discomfort as well as memory problems. Patient also saw ophthalmology with concerns for glaucoma and dilation of the optic nerve. Patient is planning to have MRI done. 04/29/22 19:14 Case was discussed with Dr. John who does recommend CT a however does not recommend TPA for this patient. Patient does have symptoms not typical of CVA with apparent anxiety. Risks of TPA are felt to outweigh the benefits. EKG Findings - EKG Comments: EKG Findings:: Sinus tachycardia 106. NC 126. QRS 117. QT 335. QTC 397. Normal axis. Incomplete right bundle-branch block. No acute ST change. Medical Decision Making - Medical Decision Making Patient reevaluated. Patient symptom-free. Speech is normal. Patient and family updated on results and plan. [facility] has been paged for admission covering Dr. Elena - Lab Data Result diagrams: 04/29/22 18:46 04/29/22 18:46 Lab Results 04/29/22 04/29/22 04/29/22 Range/Units 18:46 18:46 18:46 WBC 7.2 (3.8-10.6) k/uL RBC 4.51 (4.30-5.90) m/uL Hgb 15.1 (13.0-17.5) gm/dL Hct 44.5 (39.0-53.0) % MCV 98.5 (80.0-100.0) fL MCH 33.4 (25.0-35.0) pg MCHC 33.9 (31.0-37.0) g/dL RDW 12.5 (11.5-15.5) % Plt Count 264 (150-450) k/uL MPV 7.5 Neutrophils % 56 % Lymphocytes % 31 % Monocytes % 6 % Eosinophils % 3 % Basophils % 1 % Neutrophils # 4.0 (1.3-7.7) k/uL Lymphocytes # 2.2 (1.0-4.8) k/uL Monocytes # 0.5 (0-1.0) k/uL Eosinophils # 0.2 (0-0.7) k/uL Basophils # 0.1 (0-0.2) k/uL PT 10.7 (9.0-12.0) sec INR 1.0 (<1.2) APTT 21.1 L (22.0-30.0) sec D-Dimer <0.17 (<0.60) mg/L FEU Sodium 137 (137-145) mmol/L Potassium 4.0 (3.5-5.1) mmol/L Chloride 102 (98-107) mmol/L Carbon Dioxide 20 L (22-30) mmol/L Anion Gap 15 mmol/L BUN 9 (9-20) mg/dL Creatinine 1.18 (0.66-1.25) mg/dL Est GFR (CKD-EPI)AfAm 85 (>60 ml/min/1.73 sqM) Est GFR (CKD-EPI)NonAf 74 (>60 ml/min/1.73 sqM) Glucose 210 H (74-99) mg/dL Calcium 9.1 (8.4-10.2) mg/dL Magnesium 1.7 (1.6-2.3) mg/dL Total Bilirubin 0.7 (0.2-1.3) mg/dL AST 33 (17-59) U/L ALT 36 (4-49) U/L Alkaline Phosphatase 58 (38-126) U/L Troponin I (0.000-0.034) ng/mL Total Protein 6.7 (6.3-8.2) g/dL Albumin 4.3 (3.5-5.0) g/dL 04/29/22 Range/Units 18:46 WBC (3.8-10.6) k/uL RBC (4.30-5.90) m/uL Hgb (13.0-17.5) gm/dL Hct (39.0-53.0) % MCV (80.0-100.0) fL MCH (25.0-35.0) pg MCHC (31.0-37.0) g/dL RDW (11.5-15.5) % Plt Count (150-450) k/uL MPV Neutrophils % % Lymphocytes % % Monocytes % % Eosinophils % % Basophils % % Neutrophils # (1.3-7.7) k/uL Lymphocytes # (1.0-4.8) k/uL Monocytes # (0-1.0) k/uL Eosinophils # (0-0.7) k/uL Basophils # (0-0.2) k/uL PT (9.0-12.0) sec INR (<1.2) APTT (22.0-30.0) sec D-Dimer (<0.60) mg/L FEU Sodium (137-145) mmol/L Potassium (3.5-5.1) mmol/L Chloride (98-107) mmol/L Carbon Dioxide (22-30) mmol/L Anion Gap mmol/L BUN (9-20) mg/dL Creatinine (0.66-1.25) mg/dL Est GFR (CKD-EPI)AfAm (>60 ml/min/1.73 sqM) Est GFR (CKD-EPI)NonAf (>60 ml/min/1.73 sqM) Glucose (74-99) mg/dL Calcium (8.4-10.2) mg/dL Magnesium (1.6-2.3) mg/dL Total Bilirubin (0.2-1.3) mg/dL AST (17-59) U/L ALT (4-49) U/L Alkaline Phosphatase (38-126) U/L Troponin I <0.012 (0.000-0.034) ng/mL Total Protein (6.3-8.2) g/dL Albumin (3.5-5.0) g/dL - Radiology Data Radiology results: report reviewed (Computed tomography scan of the brain and CT shows no acute process.), image reviewed (Chest x-ray shows no acute process) Disposition Clinical Impression: Chest pain, Syncope, Speech abnormality Disposition: ADMITTED IP TO THIS [facility] Is patient prescribed a controlled substance at d/c from ED?: No Referrals: Humberto Elena MD [Primary Care Provider] - 1-2 days Time of Disposition: 22:59
[2022-04-29 18:55] LABS: Basophils # (A) 0.1 k/uL (0-0.2); Basophils % (A) 1 %; Eosinophils # (A) 0.2 k/uL (0-0.7); Eosinophils % (A) 3 %; HCT 44.5 % (39.0-53.0); HGB 15.1 gm/dL (13.0-17.5); Lymphocytes # (A) 2.2 k/uL (1.0-4.8); Lymphocytes % (A) 31 %; MCH 33.4 pg (25.0-35.0); MCHC 33.9 g/dL (31.0-37.0); MCV 98.5 fL (80.0-100.0); Mean Platelet Volume 7.5; Monocytes # (A) 0.5 k/uL (0-1.0); Monocytes % (A) 6 %; Neutrophils % (A) 56 %; Platelet Count 264 k/uL (150-450); RBC 4.51 m/uL (4.30-5.90); RDW 12.5 % (11.5-15.5); WBC 7.2 k/uL (3.8-10.6)
[2022-04-29 19:04] LABS: Albumin 4.3 g/dL (3.5-5.0); Calcium 9.1 mg/dL (8.4-10.2); Magnesium 1.7 mg/dL (1.6-2.3); Total Bilirubin 0.7 mg/dL (0.2-1.3); Total Protein 6.7 g/dL (6.3-8.2)
[2022-04-29 19:18] LABS: Partial Thromboplastin Time 21.1 sec (22.0-30.0); Prothrombin Time 10.7 sec (9.0-12.0)
--- NOTE | 2022-04-29 19:39 | CT ---
EXAMINATION TYPE: CT brain wo con DATE OF EXAM: 04/29/2022 COMPARISON: 01/14/2022 HISTORY: CVA CT DLP: 1070.6 mGycm. Automated Exposure Control for Dose Reduction was Utilized. TECHNIQUE: CT scan of the head is performed without contrast. FINDINGS: There is no acute intracranial hemorrhage, mass effect, or midline shift identified. The v entricles and sulci are within normal limits in size. The globes are intact and the visualized sinus es are clear. IMPRESSION: No acute intracranial hemorrhage, mass effect, or midline shift is seen.
--- NOTE | 2022-04-29 20:14 | CT ---
EXAMINATION TYPE: CT angio head neck with contrast and with 3-D reconstruction renderings DATE OF EXAM: 04/29/2022 HISTORY: CVA COMPARISON: CT brain without contrast 04/29/2020 CT DLP: 585.5 mGycm. Automated Exposure Control for Dose Reduction was Utilized. TECHNIQUE: CTA scan of the head and neck is performed with IV Contrast, patient injected with 65cc m L of Isovue 370, axial images are obtained, coronal and sagittal reformatted images are reviewed. 3D reconstructed images are created on an independent workstation and reviewed. FINDINGS: CTA NECK: The bilateral carotid arterial systems are widely patent without hemodynamically significan t stenosis, filling defect, or dissection. The bilateral vertebral artery systems are widely patent w ithout hemodynamically significant stenosis, filling defect, or dissection. Other: No incidental findings. CTA HEAD: The anterior and posterior arterial circulation is widely patent, without filling defect, s ignificant stenosis, dissection, or aneurysm. Other: No incidental findings. IMPRESSION: No acute process. NASCET criteria was used in interpretation of this exam?
--- NOTE | 2022-04-29 20:59 | XR ---
EXAMINATION: XR chest 2V DATE AND TIME: 04/29/2022 7:13 PM CLINICAL INDICATION: PHH; syncope TECHNIQUE: AP and lateral COMPARISON: 01/22/2022 FINDINGS: The lungs are clear. The pleural spaces are negative. The cardiac silhouette is not enlarged. The remainder of the mediastinal silhouette is unremarkable. The skeletal structures and soft tissues are negative for acute findings. IMPRESSION: NO ACUTE PROCESS.
[2022-04-29] MEDS ORDERED: NITROGLYCERIN SL TABS 0.4 MG TAB SUBLINGUAL PRN (22:59)
[2022-04-29] MEDS ORDERED: ASPIRIN 81 MG PO STA (22:59)
[2022-04-29] MEDS ORDERED: ALPRAZolam 0.25 MG TAB PO PRN (22:59)
[2022-04-30] MEDS: SODIUM CHLORIDE 0.9% 1,000 ML IV SCH ×3 (01:13→17:34)
--- NOTE | 2022-04-30 03:01 | P.HPIM ---
History of Present Illness H&P Date: 04/29/22 Chief Complaint: Syncope 46-year-old male with hypertension Patient was a rehearsal dinner when suddenly he had a syncopal episode after he regained consciousness and was recollected he noticed that he has some chest burning sensation for which EMS was notified and Route she was given some nitro and noticed some improvement in his symptoms. He denies any associated palpitations hot flashes nausea vomiting. He reports that he was feeling dizzy and passed out. He said this has been happening in about 2 weeks ago he had the presyncopal episodes when he almost passed out. He denies any changes in his lifestyle medications or any new [id number] products. He does report having some cardiac workup in the past around December 2021 where he had episodes of chest pain he presented to the hospital was monitored overnight had a stress test and was released home all his test came back normal. While in the hospital in the ER patient started complaining of garbled speech and bilateral upper and lower extremity paresthesia. Code stroke was activated CT angiogram of the head and neck and CT of the brain was performed no acute pathology was noted ER discussed the case with on-call neuro interventional no TPA was given patient's symptoms was completely resolved. Otherwise patient denies any fevers or chills denies any coughing or shortness of breath denies any abdominal pain nausea vomiting or changes in bowel or urinary habits denies any GI bleeding Workup in the ED overall unremarkable Review of Systems Pertinent positives as noted in HPI. All other systems were reviewed and are negative Past Medical History Past Medical History: Hypertension History of Any Multi-Drug Resistant Organisms: None Reported Past Surgical History: Hernia Repair Past Anesthesia/Blood Transfusion Reactions: No Reported Reaction Past Psychological History: No Psychological Hx Reported Smoking Status: Never smoker Past Alcohol Use History: Occasional Past Drug Use History: None Reported - Past Family History Mother Family Medical History: Hypertension Father Family Medical History: Hypertension Medications and Allergies Home Medications Medication Instructions Recorded Confirmed Type amLODIPine BESYLATE/BENAZEPRIL 1 cap PO DAILY 01/04/22 04/29/22 History [Lotrel 10-40 MG] Pantoprazole [Protonix] 40 mg PO DAILY 30 Days #30 tab 01/12/22 04/29/22 Rx Dicyclomine [Bentyl] 20 mg PO QID #15 tablet 01/23/22 04/29/22 Rx Escitalopram [Lexapro] 10 mg PO DAILY 04/29/22 04/29/22 History Ibuprofen [Motrin] 800 mg PO Q8H PRN 04/29/22 04/29/22 History Netarsudil Mesylat/Latanoprost 1 drop BOTH EYES HS 04/29/22 04/29/22 History [Rocklatan 0.02%-0.005% Eye Drp] Allergies Allergy/AdvReac Type Severity Reaction Status Date / Time Penicillins Allergy Rash/Hives Verified 04/29/22 21:02 all over Physical Exam Vitals: Vital Signs Temp Pulse Pulse Resp BP Pulse Ox 04/29/22 20:18 78 15 126/68 98 04/29/22 18:42 109 H 04/29/22 18:37 98 F 110 H 16 122/79 99 Intake and Output 04/29/22 04/29/22 04/30/22 14:59 22:59 06:59 Other: Weight 97.522 kg Constitutional: No acute distress, conversant, pleasant Eyes: Anicteric sclerae, moist conjunctiva, Pupils equal round reactive to light ENMT: NC/AT Oropharynx clear, no erythema, or exudates Neck: Supple, no masses, or JVD No carotid bruits No thyromegaly Lungs: Clear to auscultation Clear to percussion Normal respiratory effort, no accessory muscle use Cardiovascular: Heart regular in rate and rhythm, No murmurs, gallops, or rubs No peripheral edema Abdominal: Soft Some discomfort to deep palpation of the epigastric region no guarding, rebound or rigidity Abdomen moving with respiration Normoactive bowel sounds No hepatomegaly, No splenomegaly No palpable mass No abdominal wall hernia noted Skin: Normal temperature, tone, texture, turgor No induration No subcutaneous nodules No rash, lesions No ulcers Extremities: No digital cyanosis No clubbing Pedal pulses intact and symmetrical Radial pulses intact and symmetrical No calf tenderness Psychiatric: Alert and oriented to person, place and time Appropriate affect fair judgement Neuro Muscles Strength 5/5 in all 4 extremities Sensation to light touch grossly present throughout Cranial nerves II-XII grossly intact No focal sensory deficits Lymphatics: no palpable cervical or supraclavicular , or inguinal lymph nodes Results CBC & Chem 7: 04/29/22 18:46 04/29/22 18:46 Labs: Abnormal Lab Results - Last 24 Hours (Table) 04/29/22 04/29/22 Range/Units 18:46 18:46 APTT 21.1 L (22.0-30.0) sec Carbon Dioxide 20 L (22-30) mmol/L Glucose 210 H (74-99) mg/dL Assessment and Plan Assessment: Syncopal episode Fall precautions Check orthostatic vitals Monitor vital signs Cardiac monitoring atypical chest pain rule out ACS EKG no acute changes CXR no acute pathology trops negative X2 shelter monitor monitor vital signs ASA, statin cardiology consult A1c, lipid panel , TSH pain control Episode of garbled speech Code stroke activated, no acute pathology noted on brain imaging Neuro interventional contacted by ER, no recommendations for TPA Neuro consult Neurochecks Chronic conditions Hypertension, currently controlled continue with home blood pressure medications amlodipine GERD continue with PPI Anxiety continue with the ecitalopram DVT prophylaxis heparin subcu 3 times a day Full code
[2022-04-30] MEDS ORDERED: ASPIRIN 325 MG TAB PO SCH (09:00)
[2022-04-30 09:23] LABS: Chol/HDL Ratio 2.85 Ratio; LDL Cholesterol,Calculated 108.1 mg/dL (0.0-131.0); VLDL Calculation 11.42 mg/dL (5.00-40.00)
[2022-04-30] MEDS: HEPARIN SODIUM,PORCINE/PF 5,000 UNIT/0.5 ML SYRINGE SQ SCH ×2 (11:15→17:34)
[2022-04-30] MEDS: amLODIPine 10 MG TAB PO SCH (11:15)
[2022-04-30] MEDS: PANTOPRAZOLE 40 MG TABLET PO SCH (11:15)
[2022-04-30] MEDS: lisinopriL 20 MG TAB PO SCH (11:15)
--- NOTE | 2022-04-30 12:28 | P.CNNES ---
History of Present Illness Consult date: 04/30/22 Requesting physician: Wade Quintero Reason for Consult: Transient garbled speech with paresthesia bilateral, syncope History of Present Illness: Patient is a 46-year-old male came to the hospital by ambulance yesterday at 6 :34 PM for syncopal spells 2. Patient states that since December and January 2022 he has been having episodes of control pain, chest pain and intestinal issues. Patient states that lately he has been having some visual disturbance in which he would have loss of vision and he will be seeing colored blobs, can't focus lasting for 15 minutes to an hour. Or it can last for whole afternoon. He saw an sociology teacher and was diagnosed with advanced glaucoma. He does have bifrontal headache all the time for last 1 year. It is usually dull aching, but when it gets worse, it is sharp piercing. He gets nausea but no vomiting. He is light and noise sensitive. Initially his thought was sinus related but then probably related to glaucoma. Patient states that he has been having syncopal spells. He passed out yesterday. He was standing, doing rehearsal for his friend's wedding, when he became dizzy, lightheaded. He sat down in the chair, but then passed out. His friends sat him up, give orange juice but then he passed out again. There was no tongue bite, or loss of control of urine. He was out for about 30-60 seconds. He was confused, could not speak and was real fuzzy minded after this event. There was no convulsive activity noted. Therefore they called the ambulance. 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 He couldn't speak and was fuzzy minded postevent. Patient says that he has been feeling lightheaded off and on, but nothing like this. No previous history of seizures. No concussions. When EMS arrived patient was alert and oriented 4 sitting on a chair. Patient appeared pale and lethargic. Patient initially had syncopal episode with possible stroke symptoms. Patient had a similar syncopal episode earlier in the week. Patient complains of feeling very weak. Patient was moved to the stretc her. Patient started complaining of burning sensation in his chest and numbness discomfort in his left arm. engine monitor showed sinus rhythm. EKG leads showed possible lateral STEMI. Saturation was 99%. Blood glucose was 164. Patient denied any difficulty breathing abdominal pain, nausea vomiting or any neuro deficits. Patient was given aspirin by the EMS. Patient's blood pressure was 121/77 pulse rate 86 respirations [address] saturation [address]%. [address] head showed no acute process. CTA of head and neck showed no acute process. Chest x-ray normal. EKG shows sinus tachycardia. Incomplete right bundle- branch block. 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 No large vessel intracranial arterial occlusion or significant stenosis or aneurysm. CTA of the neck from 01/14/2022 shows no evidence of dissection of the cervical internal carotid arteries or vertebral arteries or any evidence of significant stenosis at the carotid bifurcation. Blood test shows normal CBC, PT/PTT, normal CMP. Troponin is negative. Lipid panel with cholesterol 184, LDL 108, HDL 64 and triglycerides 57. Patient also complains of some memory disturbance. About once or twice a day, he would be talking to his , and forgets the conversation. He would ask the same conversation again. Patient denies hypertension or diabetes. He drinks 2-3 beers per day. She was tobacco occasionally. Review of Systems Constitutional: Denies chills, Denies fever Eyes: bilateral blurred vision, bilateral photophobia, denies diplopia, denies discharge Ears: deny: decreased hearing Ears, nose, mouth and throat: Reports headache, Reports sinus pressure, Denies sore throat Cardiovascular: Reports chest pain, Denies shortness of breath Respiratory: Denies cough Gastrointestinal: Reports abdominal pain, Reports nausea, Denies vomiting Musculoskeletal: Reports myalgias, Reports neck stiffness Integumentary: Denies pruritus, Denies rash Neurological: Reports as per HPI Psychiatric: Denies anxiety, Denies depression Endocrine: Denies fatigue, Denies weight change Past Medical History Past Medical History: Hypertension History of Any Multi-Drug Resistant Organisms: None Reported Past Surgical History: Hernia Repair Past Anesthesia/Blood Transfusion Reactions: No Reported Reaction Smoking Status: Unknown if ever smoked - Past Family History Mother Family Medical History: Hypertension Father Family Medical History: Hypertension Medications and Allergies Home Medications Medication Instructions Recorded Confirmed Type amLODIPine BESYLATE/BENAZEPRIL 1 cap PO DAILY 01/04/22 04/29/22 History [Lotrel 10-40 MG] Pantoprazole [Protonix] 40 mg PO DAILY 30 Days #30 tab 01/12/22 04/29/22 Rx Dicyclomine [Bentyl] 20 mg PO QID #15 tablet 01/23/22 04/29/22 Rx Escitalopram [Lexapro] 10 mg PO DAILY 04/29/22 04/29/22 History Ibuprofen [Motrin] 800 mg PO Q8H PRN 04/29/22 04/29/22 History Netarsudil Mesylat/Latanoprost 1 drop BOTH EYES HS 04/29/22 04/29/22 History [Rocklatan 0.02%-0.005% Eye Drp] Allergies Allergy/AdvReac Type Severity Reaction Status Date / Time Penicillins Allergy Rash/Hives Verified 04/29/22 21:02 all over Physical Examination - Vital Signs Vital Signs: Vital Signs Temp Pulse Pulse Pulse Resp BP BP 04/30/22 09:34 04/30/22 07:40 98.1 F 61 16 131/80 04/30/22 06:15 74 15 136/74 04/29/22 20:18 78 15 126/68 04/29/22 18:42 109 H 04/29/22 18:37 98 F 110 H 16 122/79 Pulse Ox 04/30/22 09:34 98 04/30/22 07:40 97 04/30/22 06:15 98 04/29/22 20:18 98 04/29/22 18:42 04/29/22 18:37 99 Intake and Output 04/29/22 04/30/22 04/30/22 22:59 06:59 14:59 Intake Total 236 Balance 236 Intake: Oral 236 Other: # Voids 1 Weight 97.522 kg 97.522 kg Patient is a middle aged male, in no acute distress. Patient is alert awake oriented to time place and person. Speech and language functions are normal. Patient can name and repeat very well. No aphasia or dysarthria. Attention, concentration and fund of knowledge is adequate. On cranial nerve examination, pupils are equal, round and reacting to light, visual schuler are full on confrontation, with no neglect on double simultaneous depression. Extraocular muscles are intact with no nystagmus. Face is symmetri c, tongue protrudes to the midline. Palatal elevation and sensation normal, hearing and shoulder shrug normal, facial sensation normal. On muscle strength testing, there is no pronator drift and the strength is normal in arms and legs distally and proximally. Deep tendon reflexes are symmetric and trace in the upper limbs, 1+ at the knees, 1 at ankles and plantars are downgoing bilaterally. Sensory to touch is equal with no neglect on double simultaneous stimulation. Cerebellar function showed no ataxia for [id number] testing. No dysdiadochokinesia. No ataxia for eevr-zf-exun testing on either side. Tone and bulk of muscles normal. Gait normal. On general examination, there is no carotid bruit or murmur, S1-S2 audible. Chest is clear on consultation. Abdomen is soft nontender. No organomegaly, bowel sounds present. Peripheral pulses are present. No edema. Results - Laboratory Findings CBC and BMP: 04/29/22 18:46 04/29/22 18:46 Abnormal Lab Findings: Abnormal Labs 04/29/22 04/29/22 04/30/22 18:46 18:46 02:28 APTT 21.1 L Carbon Dioxide 20 L Glucose 210 H HDL Cholesterol 64.50 H Assessment and Plan Assessment: * Recurrent syncopal spells, less likely seizures. Probably orthostatic or vasovagal. * Newly diagnosed glaucoma * Cephalgia, likely due to above. Plan: * Patient undergoing carotid Doppler * 2-D echo * EEG rule out epileptiform activity. * Check orthostatics. * Agree with checking event monitor. * Neurologically clear, if above tests normal. * Thank you for the consult. Patient's EEG is normal awake and drowsy. No epileptiform activity was seen. Carotid Doppler normal. Orthostatics are normal. Supine blood pressure 121/75 with pulse rate 62, sitting 123/85 pulse 76, standing 129/84 with pulse 72. 2-D echo normal from 01/05/2022. EF 55-60%. All valves normal. Patient clear for discharge.
--- NOTE | 2022-04-30 12:39 | P.CRDCN ---
History of Present Illness History of present illness: This is a pleasant 46-year-old male past medical history significant for recent diagnosis of severe glaucoma hypertension, fatty liver, GERD. He follows with Dr. Hathaway but has not followed up since 07/2021. We have been asked to see in consultation for syncope. Patient is seen and examined at bedside. He presents to the emergency department with complaints of syncopal episodes. He has had 2 over since December of this year. He states yesterday, he was standing for a practice for his friends wedding. He had acute onset of dizziness, states he did not feel well. He went to go sit down. And he loss consciousness for about 1 minute. He states he woke up to multiple people around him. He states second time this occurred with similar symptoms but not as severe. He had bilateral arm numbness. He did notice some palpitations. He denies any chest pain, shortness of breath, headache, bowel or bladder incontinence. He states recently he had significant changes in his vision. He went to his skull chopper was found to have severe glaucoma. He also states yesterday he had difficulty getting his words out. Patient symptoms have now resolved. He denies history of CAD, NM, Stroke or Karley betes.He denies any tobacco use or illicit drug use. He did see Dr. Hathaway in the office in July 2021 he underwent Echocardiogram and Stress Echo testing which was negative for stress induced ischemia. DIAGNOSTICS * EKG reveals sinus rhythm, heart rate 85, non-specific ST-T wave abnormalities, no acute ischemia. Prior EKG with similar findings. * Echocardiogram 12/2021 revealed EF 5560 %, mild LVH. Overall normal intracardiac valves. * Recent stress Echo in the office 07/27/2021 with no evidence of stress induced ischemia or wall motion abnormalities. Patient walked for a total of 9 lily johnathon and achieved 10.3 METS with a maximum heart rate of 160bpm. Which is about 92% of MPHR * Telemetry tracings indicate sinus mechanism Hr 60s, no arrhythmia noted * Chest xray no acute cardiopulmonary process * Laboratory reviewed, troponin negative 3, sodium 137, potassium 4.0, BUN 9, serum creatinine 1.1, d-dimer negative, triglycerides 57, cholesterol 184, LDL 108, HDL 64, WBC 7.2, hemoglobin 15, platelets 264 * Current home cardiac medications include amlodipine/benazepril 1040 mg daily, REVIEW OF SYSTEMS At the time of my exam: CONSTITUTIONAL: Denies fever or chills. CARDIOVASCULAR: Denies chest pain, shortness of breath, orthopnea, PND or palpitations. RESPIRATORY: Denies cough. GASTROINTESTINAL: Denies abdominal pain, diarrhea, constipation, nausea or vomiting. MUSCULOSKELETAL: Denies myalgias. NEUROLOGIC: +bilateral arm numbness, +transient speech aphasia, +lightheadedness, dizziness Denies tingling, headache or weakness. ENDOCRINE: Denies fatigue, weight change, polydipsia or polyurina. GENITOURINARY: Denies burning, hematuria or urgency with micturation. HEMATOLOGIC: Denies history of anemia or bleeding. PHYSICAL EXAMINATION Vitals reviewed CONSTITUTIONAL: No apparent distress. HEENT: Head is normocephalic. Pupils are equal, round. Sclerae anicteric. Mucous membranes of the mouth are moist. No JVD. CHEST EXAMINATION: Lungs are clear to auscultation. No chest wall tenderness is noted on palpation or with deep breathing. HEART EXAMINATION: Regular rate and rhythm. S1, S2 heard. No murmurs, gallops or rub. ABDOMEN: Soft, nontender. Positive bowel sounds. EXTREMITIES: 2+ peripheral pulses, no lower extremity edema and no calf tenderness. SKIN: warm, dry NEUROLOGIC EXAMINATION: Patient is awake, alert and oriented x3. ASSESSMENT Syncopal episode, unclear etiology Transient episode of speech aphasia and bilateral arm numbness Reported palpitations Hypertension GERD History of fatty liver PLAN An acute coronary event has been ruled out with no EKG evidence of ischemia and negative cardiac enzymes. Monitor on telemetry for additional 24 hours Neurology consulted No need to repeat echocardiogram with recent 12/2021 30 Day event monitor at discharge. Follow up with Dr. Hathaway as an outpatient Further recommendations based on clinical course Thank you kindly for this consultation. Nurse practitioner note has been reviewed by physician. Signing provider agrees with the documented findings, assessment, and plan of care. Past Medical History Past Medical History: Hypertension History of Any Multi-Drug Resistant Organisms: None Reported Past Surgical History: Hernia Repair Past Anesthesia/Blood Transfusion Reactions: No Reported Reaction Past Psychological History: No Psychological Hx Reported Smoking Status: Never smoker Past Alcohol Use History: Occasional Past Drug Use History: None Reported - Past Family History Mother Family Medical History: Hypertension Father Family Medical History: Hypertension Medications and Allergies Home Medications Medication Instructions Recorded Confirmed Type amLODIPine BESYLATE/BENAZEPRIL 1 cap PO DAILY 01/04/22 04/29/22 History [Lotrel 10-40 MG] Pantoprazole [Protonix] 40 mg PO DAILY 30 Days #30 tab 01/12/22 04/29/22 Rx Dicyclomine [Bentyl] 20 mg PO QID #15 tablet 01/23/22 04/29/22 Rx Escitalopram [Lexapro] 10 mg PO DAILY 04/29/22 04/29/22 History Ibuprofen [Motrin] 800 mg PO Q8H PRN 04/29/22 04/29/22 History Netarsudil Mesylat/Latanoprost 1 drop BOTH EYES HS 04/29/22 04/29/22 History [Rocklatan 0.02%-0.005% Eye Drp] Allergies Allergy/AdvReac Type Severity Reaction Status Date / Time Penicillins Allergy Rash/Hives Verified 04/29/22 21:02 all over Physical Exam Vitals: Vital Signs Temp Pulse Pulse Resp BP Pulse Ox 04/30/22 06:15 74 15 136/74 98 04/29/22 20:18 78 15 126/68 98 04/29/22 18:42 109 H 04/29/22 18:37 98 F 110 H 16 122/79 99 Intake and Output 04/29/22 04/30/22 04/30/22 22:59 06:59 14:59 Other: Weight 97.522 kg Results 04/29/22 18:46 04/29/22 18:46 Cardiac Enzymes 04/29/22 04/29/22 04/29/22 Range/Units 18:46 18:46 23:44 AST 33 (17-59) U/L Troponin I <0.012 <0.012 (0.000-0.034) ng/mL 04/30/22 Range/Units 02:28 AST (17-59) U/L Troponin I <0.012 (0.000-0.034) ng/mL Coagulation 04/29/22 Range/Units 18:46 PT 10.7 (9.0-12.0) sec APTT 21.1 L (22.0-30.0) sec CBC 04/29/22 Range/Units 18:46 WBC 7.2 (3.8-10.6) k/uL RBC 4.51 (4.30-5.90) m/uL Hgb 15.1 (13.0-17.5) gm/dL Hct 44.5 (39.0-53.0) % Plt Count 264 (150-450) k/uL Comprehensive Metabolic Panel 04/29/22 Range/Units 18:46 Sodium 137 (137-145) mmol/L Potassium 4.0 (3.5-5.1) mmol/L Chloride 102 (98-107) mmol/L Carbon Dioxide 20 L (22-30) mmol/L BUN 9 (9-20) mg/dL Creatinine 1.18 (0.66-1.25) mg/dL Glucose 210 H (74-99) mg/dL Calcium 9.1 (8.4-10.2) mg/dL AST 33 (17-59) U/L ALT 36 (4-49) U/L Alkaline Phosphatase 58 (38-126) U/L Total Protein 6.7 (6.3-8.2) g/dL Albumin 4.3 (3.5-5.0) g/dL Current Medications Generic Name Dose Route Start Last Admin Trade Name Freq PRN Reason Stop Dose Admin Alprazolam 0.25 mg 04/29/22 22:59 Alprazolam 0.25 Mg Tab PO QID PRN Anxiety Amlodipine Besylate 10 mg 04/30/22 09:00 Amlodipine 10 Mg Tab PO DAILY [facility] Aspirin 325 mg 04/30/22 09:00 Aspirin 325 Mg Tab PO DAILY [facility] Escitalopram Oxalate 10 mg 04/30/22 09:00 Escitalopram 10 Mg Tab PO DAILY [facility] Heparin Sodium (Porcine) 5,000 unit 04/30/22 08:00 Heparin Sodium,Porcine/Pf 5,000 Unit/0.5 Ml Syringe SQ Q8HR AYALA Sodium Chloride 1,000 mls @ 75 mls/hr 04/29/22 18:37 04/29/22 18:58 Saline 0.9% IV 04/30/22 07:56 75 mls/hr .[id number] STA Administration Sodium Chloride 1,000 mls @ 100 mls/hr 04/29/22 23:00 04/30/22 01:13 Saline 0.9% IV 100 mls/hr .Q10H AYALA Administration Lisinopril 40 mg 04/30/22 09:00 Lisinopril 20 Mg Tab PO DAILY AYALA Nitroglycerin 0.4 mg 04/29/22 22:59 Nitroglycerin Sl Tabs 0.4 Mg Tab SUBLINGUAL Q5M PRN Chest Pain Pantoprazole Sodium 40 mg 04/30/22 07:30 Pantoprazole 40 Mg Tablet PO [id number] AYALA Sodium Chloride 10 ml 04/30/22 09:00 Sodium Chloride 0.9% Flush 10 Ml Syringe IV BID AYALA Intake and Output 04/29/22 04/30/22 04/30/22 22:59 06:59 14:59 Other: Weight 97.522 kg 04/29/22 18:46 04/29/22 18:46
--- NOTE | 2022-04-30 15:04 | US ---
EXAMINATION TYPE: US carotid duplex BILAT DATE OF EXAM: 04/30/2022 COMPARISON: NONE CLINICAL HISTORY: 46-year-old male rule out carotid stenosis. TECHNIQUE: Carotid duplex ultrasound examination. Indirect Doppler criteria was utilized. Exam done portable FINDINGS: EXAM MEASUREMENTS: RIGHT: Peak Systolic Velocity (PSV) cm/sec ----- Right CCA: 106.0 ----- Right ICA: 90.9 ----- Right ECA: 87.4 ICA/CCA ratio: 0.9 RIGHT: End Diastole cm/sec ----- Right CCA: 20.0 ----- Right ICA: 19.0 ----- Right ECA: 9.2 LEFT: Peak Systolic Velocity (PSV) cm/sec ----- Left CCA: 121.0 ----- Left ICA: 71.5 ----- Left ECA: 94.4 ICA/CCA ratio: 0.6 LEFT: End Diastole cm/sec ----- Left CCA: 18.5 ----- Left ICA: 28.4 ----- Left ECA: 14.1 VERTEBRALS (direction of flow): Right Vertebral: Antegrade Left Vertebral: Antegrade Rhythm: Normal Risk And Compliance Analytics Director notes: No significant stenosis IMPRESSION: No hemodynamically significant internal carotid artery stenosis on either side. Criteria for Assigning % of Stenosis / Diameter reduction (Estimation based on the indirect measurements of the internal carotid artery velocities (ICA PSV). 1. Normal (no stenosis)=ICA PSV < 125 cm/s: ratio < 2.0: ICA EDV<40 cm/s. 2. Less than 50% stenosis=ICA PSV < 125 cm/s: ratio < 2.0: ICA EDV<40 cm/s. 3. 50 to 69% stenosis=ICA PSV of 125 to 230 cm/s: ration 2.0 ? 4.0: ICA EDV 40-100 cm/s. 4. Greater than 70% stenosis to near occlusion= ICA PSV > 230 cm/s: ratio > 4.0: ICA EDV > 100 cm/s. 5. Near occlusion= ICA PSV velocities may be low or undetectable: variable ratio and ICA EDV. 6. Total occlusion=unable to detect flow.
[2022-04-30] MEDS: ESCITALOPRAM 10 MG TAB PO SCH (17:34)
--- NOTE | 2022-04-30 18:06 | P.PN ---
Subjective Progress Note Date: 04/30/22 Hospital course: Patient is a very pleasant 46-year-old male with a past medical history of hypertension and anxiety. He presented to the emergency department with a chief complaint of syncopal episode accompanied by headache, fatigue, and dizziness. while in the emergency department patient started complaining of garbled speech and bilateral upper and lower extremity paresthesias. He underwent a CT head which was negative for acute intercranial process and a CTA head and neck which was also negative for acute process. Chest x-ray was also negative for acute process. EKG revealed sinus tachycardia at 106 bpm.CBC, coags, and CMP were unremarkable. D-dimer was negative. Troponin also negative at less than 0.012. Patient admitted under our services with consultation to cardiology and neurology. Physical exam: Patient seen and fully evaluated at bedside this morning he is complaining of continued headache, fatigue, and dizziness only upon ambulation.orthostatic vitals negative. Echocardiogram being completed at this time. Vital signs reviewed and stable. General: Nontoxic, no distress and appears stated age. Derm: Skin warm and dry, normal coloration for ethnicity. Head: Atraumatic, normocephalic and symmetric. Eyes: EOMs intact, no lid lag, and anicteric sclera Mouth: no lip lesions, mucus membranes moist Cardiovascular: regular rate and rhythm with normal S1S2, no murmur, positive posterior tibial pulses bilaterally, and cap refill < 2 seconds. Lungs: Respirations even, regular, and unlabored on room air. Lungs CTA bilaterally, no rhonchi, no rales, no wheezing, and no accessory muscle usage. Abdominal: soft, nontender to palpation, no guarding, no appreciable organomegaly Ext: ROM intact. No gross muscle atrophy, no edema, no contractures Neuro: Speech clear, face symmetrical and CN II-XII grossly intact with no noted focal neuro deficits Psych: Alert and oriented to person, place, time, and situation. Appropriate and pleasant affect. Assessment and Plan of Care: Syncopal episode Atypical chest pain/palpitations Episode of garbled speech Telemetry monitoring Fall precautions Monitor orthostatic vitals Neuro checks Neurology consulted Cardiology consulted carotid Dopplers, echocardiogram, and EEG completed in pending results. Hypertension Monitor vital signs and Continue daily medication regimen with amlodipine/benaz epril Anxiety Continue daily medication regimen of Lexapro. CODE STATUS: full code DVT prophylaxis: heparin Discussed with: patient and RN Anticipated discharge date: clinical course to determine, later today versus tomorrow morning Anticipated discharge place: home A total of 33 minutes was spent on the care of this complex patient more than 50% of the time was spent in counseling and care coordination. I reviewed the documentation as provided by the JEREMY above, who is the original author of this note. I agree with the documented assessment and plan, with the following changes: none Objective - Vital Signs Vital signs: Vital Signs Temp 98.1 F 04/30/22 07:40 Pulse 61 04/30/22 07:40 Resp 16 04/30/22 07:40 BP 131/80 04/30/22 07:40 Pulse Ox 98 04/30/22 09:34 FiO2 Intake & Output 04/29/22 04/30/22 04/30/22 18:59 06:59 18:59 Intake Total 236 Balance 236 Weight 97.522 kg Intake: Oral 236 Other: # Voids 1 - Labs CBC & Chem 7: 04/29/22 18:46 04/29/22 18:46 Labs: Abnormal Lab Results - Last 24 Hours (Table) 04/29/22 04/29/22 04/30/22 Range/Units 18:46 18:46 02:28 APTT 21.1 L (22.0-30.0) sec Carbon Dioxide 20 L (22-30) mmol/L Glucose 210 H (74-99) mg/dL HDL Cholesterol 64.50 H (40.00-60.00) mg/dL
--- NOTE | 2022-04-30 20:07 | CA ---
Transthoracic Echo Report Name: Taiwo Manzano Age: 46 Gender: M : 1975 Exam Date: 04/30/2022 08:34 Exam Location: [place] Echo Ht (in): 70 Wt (lb): 215 Ordering Physician: Wade Quintero DO Attending/Referring Phys: Proof Clerk Khadra Carey RDCS Procedure CPT: Indications: Thrombus Cardiac Hx: Technical Quality: Fair Contrast 1: Total Dose (mL): Contrast 2: Total Dose (mL): MEASUREMENTS (Male / Female) Normal Values FINDINGS Left Ventricle Limited Study. Normal left ventricular systolic function with no obvious regional wall motion abnormalities. Left ventricular ejection fraction is estimated at 55-60 %. Right Ventricle Right Atrium Left Atrium Mitral Valve Aortic Valve Tricuspid Valve Pulmonic Valve Pericardium No pericardial effusion. Aorta CONCLUSIONS Normal LV size and systolic function no regional wall motion amenities. Valve structures are normal. No pericardial effusion Previewed by: Dr. Armani Marmolejo MD (Electronically Signed) Final Date: 30 April 2022 20:06
[2022-05-01] MEDS: HEPARIN SODIUM,PORCINE/PF 5,000 UNIT/0.5 ML SYRINGE SQ SCH ×2 (00:43→08:32)
--- NOTE | 2022-05-01 02:18 | EEG ---
ELECTROENCEPHALOGRAM REPORT PREAMBLE: This is a 46-year-old male with recurrent syncopal spells. This study is performed to evaluate for any epileptiform activity. EEG FINDINGS: This is a 21-channel digital EEG recorded with video component, utilizing 10/20 international system with referential and bipolar montages. Background consists of well developed, well regulated moderate voltage activity in 10 hertz alpha. Background is posterior dominant and reactive to eye opening and closing. Photic driving response was not clearly seen. Some drowsiness was seen with appearance of bilaterally symmetric theta frequency rhythm. Deeper stages of sleep were not seen. No focal or generalized epileptiform activity was seen. EKG channel showed no obvious arrhythmia. IMPRESSION: This is a normal awake and drowsy EEG. No focal, lateralized or epileptiform activity was seen. MMODL / IJN: [id number] /
[2022-05-01 07:34] VITALS: BP 119/73; RESP 18; TEMP 98.2
[2022-05-01] MEDS: PANTOPRAZOLE 40 MG TABLET PO SCH (08:31)
[2022-05-01] MEDS: amLODIPine 10 MG TAB PO SCH (08:31)
[2022-05-01] MEDS: lisinopriL 20 MG TAB PO SCH (08:32)
[2022-05-01] MEDS: ESCITALOPRAM 10 MG TAB PO SCH (08:32)
[2022-05-01] MEDS: SODIUM CHLORIDE 0.9% 1,000 ML IV SCH (08:40)
[2022-05-01] MEDS ORDERED: ASPIRIN 81 MG PO SCH (09:00)
[2022-05-01 09:17] VITALS: PULSE 109
--- NOTE | 2022-05-01 11:37 | P.DS ---
Providers Date of admission: 04/29/22 22:59 Expected date of discharge: 05/01/22 Attending physician: Manuel Maki MD Consults: 04/29/22 22:59 Consult Physician Urgent Consulting Provider: Rafi Davidson Consult Reason/Comments: Transient garbled speech with paresthesia bilateral, syncope Do you want consulting provider notified?: Yes Consult Physician Urgent Consulting Provider: Marek Hathaway Consult Reason/Comments: cp, syncope Do you want consulting provider notified?: Yes Primary care physician: Humberto Elena Hospital Course: Discharge Diagnosis: Syncopal episode, patient discharged home with 30 day event monitor. Patient to follow up outpatient with PCP in 1-2 days and black off worker in 1 week. Atypical chest pain/palpitations.Patient discharged home with 30 day event monitor. Patient to follow up outpatient with PCP in 1-2 days and black off worker in 1 week. Episode of garbled speech Hypertension. Monitor vital signs and Continue daily medication regimen with amlodipine/benazepril Anxiety. Continue daily medication regimen of Lexapro. Hospital Course: Patient is a very pleasant 46-year-old male with a past medical history of hypertension and anxiety. He presented to the emergency department with a chief complaint of syncopal episode accompanied by headache, fatigue, and dizziness. while in the emergency department patient started complaining of garbled speech and bilateral upper and lower extremity paresthesias. He underwent a CT head which was negative for acute intercranial process and a CTA head and neck which was also negative for acute process. Chest x-ray was also negative for acute process. EKG revealed sinus tachycardia at 106 bpm.CBC, coags, and CMP were unremarkable. D-dimer was negative. Troponin also negative at less than 0.012. Patient admitted under our services with consultation to cardiology and neurology. Troponins trended overnight all negative at less than 0.0123 draws. EEG completed showing normal awake and drowsy EEG with no focal, lateralizing, or epileptiform activity. Echocardiogram completed revealing normal EF of 55- 60%. Carotid Dopplers revealing no hemodynamically significant internal carotid artery stenosis on either side. Patient was evaluated by neurology clearing patient for discharge from neurological perspective. Patient was evaluated by cardiology and a 30 day Holter monitor was recommended. Patient had a Holter monitor placed during hospitalization. Patient is currently medically stable at this time and reports no further episodes of dizziness or lightheadedness. Patient free from any chest pain, palpitations, headache, or any reports of numbness/tingling/weakness in his extremities. Patient medically stable at this time and to follow up outpatient with PCP in 2 days and cardiology in 1 week. Holter monitor in place and patient giving discharge instructions regarding use. Patient denied having any questions or concerns regarding discharge instructions. Physical exam: Vital signs reviewed and stable. General: Nontoxic, no distress and appears stated age. Derm: Skin warm and dry, normal coloration for ethnicity. Head: Atraumatic, normocephalic and symmetric. Eyes: EOMs intact, no lid lag, and anicteric sclera Mouth: no lip lesions, mucus membranes moist Cardiovascular: regular rate and rhythm with normal S1S2, no murmur, positive posterior tibial pulses bilaterally, and cap refill < 2 seconds. Lungs: Respirations even, regular, and unlabored on room air. Lungs CTA bilaterally, no rhonchi, no rales, no wheezing, and no accessory muscle usage. Abdominal: soft, nontender to palpation, no guarding, no appreciable org anomegaly Ext: ROM intact. No gross muscle atrophy, no edema, no contractures Neuro: Speech clear, face symmetrical and CN II-XII grossly intact with no noted focal neuro deficits Psych: Alert and oriented to person, place, time, and situation. Appropriate and pleasant affect. A total of 38 minutes of time were spent preparing this complex discharge summary. Pt was discharged on 05/01/22 at 11:37 AM. I reviewed the documentation as provided by the JEREMY above, who is the original author of this note. I agree with the documented assessment and plan, with the following changes: none Patient Condition at Discharge: Stable Plan - Discharge Summary Discharge Rx Participant: No New Discharge Prescriptions: Continue Pantoprazole [Protonix] 40 mg PO DAILY 30 Days #30 tab Dicyclomine [Bentyl] 20 mg PO QID #15 tablet Escitalopram [Lexapro] 10 mg PO DAILY amLODIPine BESYLATE/BENAZEPRIL [Lotrel 10-40 MG] 1 cap PO DAILY Ibuprofen [Motrin] 800 mg PO Q8H PRN PRN Reason: Pain Netarsudil Mesylat/Latanoprost [Rocklatan 0.02%-0.005% Eye Drp] 1 drop BOTH EYES HS Discharge Medication List amLODIPine BESYLATE/BENAZEPRIL [Lotrel 10-40 MG] 1 cap PO DAILY 01/04/22 [History] Pantoprazole [Protonix] 40 mg PO DAILY 30 Days #30 tab 01/12/22 [Rx] Dicyclomine [Bentyl] 20 mg PO QID #15 tablet 01/23/22 [Rx] Escitalopram [Lexapro] 10 mg PO DAILY 04/29/22 [History] Ibuprofen [Motrin] 800 mg PO Q8H PRN 04/29/22 [History] Netarsudil Mesylat/Latanoprost [Rocklatan 0.02%-0.005% Eye Drp] 1 drop BOTH EYES HS 04/29/22 [History] Follow up Appointment(s)/Referral(s): Marek Hathaway MD [STAFF PHYSICIAN] - 1 Week Humberto Elena MD [Primary Care Provider] - 1-2 days Activity/Diet/Wound Care/Special Instructions: Activity: As tolerated. Take breaks as needed. Diet: Heart healthy and carb consistent diet. Avoid salts, or foods with hidden salts such as canned or boxed foods and frozen dinners. Extra salt makes your heart work harder and traps the fluid in your body for longer. Special Instructions: Take all of your medications as directed and remember to keep all of your doctor's appointments and follow-up as needed. You are being discharged home with a 30 day event monitor. You will need to follow up in office with black off worker in 1 week. Thank you for allowing us to participate in your care, it was truly a pleasure having you for our patient!!! Discharge Disposition: HOME SELF-CARE
== END 2022-05-01 12:46 | disposition home or self-care (01) ==
LOC: EC 18:34 → 6NMEDSUR 22:59
PROVIDERS: ADMIT Internal Medicine; ATTEND Internal Medicine
DX: R55 Syncope and collapse (principal); R07.89 Other chest pain; R00.2 Palpitations; R51.9 Headache, unspecified; R53.83 Other fatigue; R41.3 Other amnesia; R20.2 Paresthesia of skin; R47.01 Aphasia; I10 Essential (primary) hypertension; Z82.49 Family history of ischemic heart disease and other diseases of the circulatory system; K21.9 Gastro-esophageal reflux disease without esophagitis; F41.9 Anxiety disorder, unspecified; K76.0 Fatty (change of) liver, not elsewhere classified; H40.9 Unspecified glaucoma; Z79.899 Other long term (current) drug therapy; Z88.0 Allergy status to penicillin
CPT/HCPCS: 96360; 96361; 96372 ×2; 99285; 36415; 94760; 95816; 93005; 93308; 93270; 97162; 97165; 85379; 80061; 80053; 84443; 83735; 84484 ×2; 85025; 85610; 85730; 71046; 93880; 70496; 70450; 70498; G0378 ×3; Q9967; J1644 ×2

== ENCOUNTER 2023-01-03 22:28 | Emergency (ER) | payer BC ==
[2023-01-03 22:46] VITALS: RESP 18; TEMP 98.2
[2023-01-03 23:10] LABS: Basophils % (A) 1 %; Eosinophils # (A) 0.3 k/uL (0-0.7); Eosinophils % (A) 3 %; HGB 15.4 gm/dL (13.0-17.5); Lymphocytes # (A) 2.4 k/uL (1.0-4.8); Lymphocytes % (A) 29 %; MCHC 34.3 g/dL (31.0-37.0); MCV 96.3 fL (80.0-100.0); Mean Platelet Volume 8.2; Monocytes # (A) 0.5 k/uL (0-1.0); Monocytes % (A) 6 %; Neutrophils # (A) 4.8 k/uL (1.3-7.7); Neutrophils % (A) 58 %; Platelet Count 214 k/uL (150-450); RBC 4.68 m/uL (4.30-5.90); RDW 12.1 % (11.5-15.5); WBC 8.2 k/uL (3.8-10.6)
--- NOTE | 2023-01-03 23:16 | XR ---
EXAMINATION TYPE: XR chest 2V DATE OF EXAM: 01/03/2023 COMPARISON: Chest x-ray April 29, 2022 HISTORY: Difficulty in breathing. TECHNIQUE: Frontal and lateral views of the chest are obtained. FINDINGS: There is no suspicious focal air space opacity, pleural effusion, or pneumothorax seen. T he cardiac silhouette size is stable and within normal limits. The osseous structures are intact. IMPRESSION: No acute process. No significant change from prior.
[2023-01-03 23:19] LABS: Appearance,Urine Clear (Clear); Bilirubin,Urine Negative (Negative); Blood,Urine Negative (Negative); Color,Urine Colorless; Glucose,Urine (UA) Negative (Negative); Ketones,Urine Negative (Negative); Leukocyte Esterase,Urine Negative (Negative); Nitrite,Urine Negative (Negative); PH, Urine 5.5 (5.0-8.0); Protein,Urine Negative (Negative); Specific Gravity,Urine 1.002 (1.001-1.035); Urobilinogen,Urine <2.0 mg/dL (<2.0)
[2023-01-03 23:19] LABS: Partial Thromboplastin Time 23.1 sec (22.0-30.0); Prothrombin Time 10.3 sec (9.0-12.0)
[2023-01-03 23:25] LABS: ALT 44 U/L (4-49); AST 34 U/L (17-59); African American GFR (CKD) >90 (>60 ml/min/1.73 sqM); Albumin 5.1 g/dL (3.5-5.0); Alkaline Phosphatase 67 U/L (38-126); Anion Gap 15 mmol/L; Blood Urea Nitrogen 11 mg/dL (9-20); Calcium 9.7 mg/dL (8.4-10.2); Carbon Dioxide 23 mmol/L (22-30); Chloride 100 mmol/L (98-107); Glucose 99 mg/dL (74-99); Non-African American GFR(CKD) >90 (>60 ml/min/1.73 sqM); Potassium 3.3 mmol/L (3.5-5.1); Sodium 138 mmol/L (137-145); Total Bilirubin 1.1 mg/dL (0.2-1.3); Total Protein 8.4 g/dL (6.3-8.2)
[2023-01-04] MEDS ORDERED: KETOROLAC 15 MG/ML 1 ML VIAL IVP STA (04:18)
--- NOTE | 2023-01-04 04:19 | ED ---
General Adult HPI - General Chief complaint: Shortness of Breath Stated complaint: SWELLING IN NECK Time Seen by Provider: 01/04/23 03:09 Source: patient Mode of arrival: ambulatory Limitations: no limitations - History of Present Illness Initial comments: This is a 47-year-old male with a past medical history including pots disease and nonspecific swelling and other issues presents emergency department for left-sided breast swelling and swelling over the left side of the body. The patient stated the symptoms been present over the last 1 year but stated over the last several weeks had worsening swelling and pain to the left breast as well as the left axilla. The patient stated that he did have some minor swelling to the bilateral neck as well as swelling sensation noted across the back. The patient himself denied any nausea, vomiting as well as any fevers and chills. The patient stated that he is starting to see a holistic doctor and is trying to take other medications off that he is taking. The patient does have follow-up with this provider tomorrow and has been seen by a customer contact specialist as well as a lacquer polisher and neurologist however there were no specific findings noted. The patient was otherwise resting in bed comfortably. - Related Data Home Medications Medication Instructions Recorded Confirmed amLODIPine BESYLATE/BENAZEPRIL 1 cap PO DAILY 01/04/22 04/29/22 [Lotrel 10-40 MG] Escitalopram [Lexapro] 10 mg PO DAILY 04/29/22 04/29/22 Ibuprofen [Motrin] 800 mg PO Q8H PRN 04/29/22 04/29/22 Netarsudil Mesylat/Latanoprost 1 drop BOTH EYES HS 04/29/22 04/29/22 [Rocklatan 0.02%-0.005% Eye Drp] Previous Rx's Medication Instructions Recorded Pantoprazole [Protonix] 40 mg PO DAILY 30 Days #30 tab 01/12/22 Dicyclomine [Bentyl] 20 mg PO QID #15 tablet 01/23/22 Ketorolac [Toradol] 10 mg PO TID #30 tab 01/04/23 Allergies Allergy/AdvReac Type Severity Reaction Status Date / Time Penicillins Allergy Rash/Hives Verified 01/03/23 22:40 all over Review of Systems ROS Statement: Those systems with pertinent positive or pertinent negative responses have been documented in the HPI. ROS Other: All systems not noted in ROS Statement are negative. Past Medical History Past Medical History: Hypertension Additional Past Medical History / Comment(s): POTS History of Any Multi-Drug Resistant Organisms: None Reported Past Surgical History: Hernia Repair Past Anesthesia/Blood Transfusion Reactions: No Reported Reaction Past Psychological History: No Psychological Hx Reported Smoking Status: Never smoker Past Alcohol Use History: Occasional Past Drug Use History: Marijuana - Past Family History Mother Family Medical History: Hypertension Father Family Medical History: Hypertension General Exam Limitations: no limitations General appearance: alert, in no apparent distress Head exam: Present: atraumatic, normocephalic, normal inspection Eye exam: Present: normal appearance, PERRL Pupils: Present: normal accommodation ENT exam: Present: normal exam, normal oropharynx, mucous membranes moist Neck exam: Present: normal inspection, full ROM Respiratory exam: Present: normal lung sounds bilaterally, other (Minor swelling noted to the left breast over the 3 o'clock position. There was no hardened nodule, erythema or induration noted.) Cardiovascular Exam: Present: regular rate, normal rhythm, normal heart sounds GI/Abdominal exam: Present: soft, normal bowel sounds Extremities exam: Present: normal inspection, full ROM Back exam: Present: normal inspection, full ROM Neurological exam: Present: alert, oriented X3, CN II-XII intact Psychiatric exam: Present: normal affect, normal mood Skin exam: Present: warm, dry Course Vital Signs 01/03/23 01/04/23 22:36 04:19 Temperature 98.2 F Pulse Rate 87 67 Respiratory 18 18 Rate Blood Pressure 159/82 159/93 O2 Sat by Pulse 100 97 Oximetry EKG Findings - EKG Comments: EKG Findings:: An EKG was obtained and was interpreted by myself showing a rate of 91, WV interval 147, QR episcopal of 129 and QTC of 424. This EKG showed a normal sinus rhythm with no ST segment elevation or depression noted. Medical Decision Making - Medical Decision Making Was pt. sent in by a medical professional or institution (JOSE Marc, NETWORK SYSTEMS ADMINISTRATOR, urgent care, hospital, or retirement...) When possible be specific @ -No Did you speak to anyone other than the patient for history (EMS, parent, family, police, friend...)? What history was obtained from this source @ -Yes, patient's was at the bedside and did confirm the patient's history of present illness as well as all of the details regarding other specialist that the patient had been seen by Did you review nursing and triage notes (agree or disagree)? Why? @ -I reviewed and agree with nursing and triage notes Were old charts reviewed (outside hosp., previous admission, EMS record, old EKG, old radiological studies, urgent care reports/EKG's, retirement records)? Report findings @ -No old charts were reviewed Differential Diagnosis (chest pain, altered mental status, abdominal pain women, abdominal pain men, vaginal bleeding, weakness, fever, dyspnea, syncope, headache, dizziness, GI bleed, back pain, seizure, CVA, palpatations, mental health)? @ -Left breast mass, left breast abscess, lymphadenopathy EKG interpreted by me (3pts min.). @ -None X-rays interpreted by me (1pt min.). @ -None done CT interpreted by me (1pt min.). @ -None done U/S interpreted by me (1pt. min.). @ -And ultrasound of the left breast was obtained and was reviewed by myself showing a breast nodule however there was no signs of abscess noted. The official read by the radiologist was still pending. What testing was considered but not performed or refused? (CT, X-rays, U/S, labs)? Why? @ -None What meds were considered but not given or refused? Why? @ -None Did you discuss the management of the patient with other professionals (professionals i.e. , PA, NETWORK SYSTEMS ADMINISTRATOR, lab, RT, psych nurse, manager social media, lawyer real estate, teacher, county health officer, hospice case manager)? Give summary @ -No Was smoking cessation discussed for >3mins.? @ -No Was critical care preformed (if so, how long)? @ -No Were there social determinants of health that impacted care today? How? (Homelessness, low income, unemployed, alcoholism, drug addiction, transportation, low edu. Level, literacy, decrease access to med. care, correction, re hab)? @ -No Was there de-escalation of care discussed even if they declined (Discuss DNR or withdrawal of care, Hospice)? DNR status @ -No What co-morbidities impacted this encounter? (DM, HTN, Smoking, COPD, CAD, Cancer, CVA, ARF, Chemo, Hep., AIDS, mental health diagnosis, sleep apnea, morbid obesity)? @ -POTS Was patient admitted / discharged? Hospital course, mention meds given and route, prescriptions, significant lab abnormalities, going to OR and other pertinent info. @ -The patient was seen and evaluated emergency department. Physical exam, the patient was resting in bed without any acute distress. Vital signs admission were stable. Due to the nature the patient's complaints, laboratory workup and imaging was obtained in triage. All laboratory workup was within normal limits. Ultrasound was reviewed by myself and did not show any significant signs for abscess but did show a lobule noted. The patient did not have any known etiology of his symptoms and was stable for discharge and to follow-up as an outpatient. The patient was advised to contact his primary care physician for a mammogram for further evaluation. The patient and his are agreeable to this and all other questions were answered. The patient was discharged home in stable condition. Undiagnosed new problem with uncertain prognosis? @ -No Drug Therapy requiring intensive monitoring for toxicity (Heparin, Nitro, Insulin, Cardizem)? @ -No Were any procedures done? @ -No Diagnosis/symptom? @ -Left breast swelling, mass, NOS Acute, or Chronic, or Acute on Chronic? @ -Chronic Uncomplicated (without systemic symptoms) or Complicated (systemic symptoms)? @ -Uncomplicated Side effects of treatment? @ -No Exacerbation, Progression, or Severe Exacerbation? @ -No Poses a threat to life or bodily function? How? (Chest pain, [place], [place], pneumonia, PE, COPD, DKA, ARF, appy, cholecystitis, CVA, Diverticulitis, Homicidal, Suicidal, threat to staff... and all critical care pts) @ -No - Lab Data Result diagrams: 01/03/23 22:56 01/03/23 22:56 Lab Results 01/03/23 01/03/23 01/03/23 Range/Units 22:45 22:56 22:56 WBC 8.2 (3.8-10.6) k/uL RBC 4.68 (4.30-5.90) m/uL Hgb 15.4 (13.0-17.5) gm/dL Hct 45.0 (39.0-53.0) % MCV 96.3 (80.0-100.0) fL MCH 33.0 (25.0-35.0) pg MCHC 34.3 (31.0-37.0) g/dL RDW 12.1 (11.5-15.5) % Plt Count 214 (150-450) k/uL MPV 8.2 Neutrophils % 58 % Lymphocytes % 29 % Monocytes % 6 % Eosinophils % 3 % Basophils % 1 % Neutrophils # 4.8 (1.3-7.7) k/uL Lymphocytes # 2.4 (1.0-4.8) k/uL Monocytes # 0.5 (0-1.0) k/uL Eosinophils # 0.3 (0-0.7) k/uL Basophils # 0.0 (0-0.2) k/uL PT 10.3 (9.0-12.0) sec INR 1.0 (<1.2) APTT 23.1 (22.0-30.0) sec Sodium (137-145) mmol/L Potassium (3.5-5.1) mmol/L Chloride (98-107) mmol/L Carbon Dioxide (22-30) mmol/L Anion Gap mmol/L BUN (9-20) mg/dL Creatinine (0.66-1.25) mg/dL Est GFR (CKD-EPI)AfAm (>60 ml/min/1.73 sqM) Est GFR (CKD-EPI)NonAf (>60 ml/min/1.73 sqM) Glucose (74-99) mg/dL Calcium (8.4-10.2) mg/dL Total Bilirubin (0.2-1.3) mg/dL AST (17-59) U/L ALT (4-49) U/L Alkaline Phosphatase (38-126) U/L Troponin I (0.000-0.034) ng/mL Total Protein (6.3-8.2) g/dL Albumin (3.5-5.0) g/dL Urine Color Colorless Urine Appearance Clear (Clear) Urine pH 5.5 (5.0-8.0) Ur Specific [place] 1.002 (1.001-1.035) Urine Protein Negative (Negative) Urine Glucose (UA) Negative (Negative) Urine Ketones Negative (Negative) Urine Blood Negative (Negative) Urine Nitrite Negative (Negative) Urine Bilirubin Negative (Negative) Urine Urobilinogen <2.0 (<2.0) mg/dL Ur Leukocyte Esterase Negative (Negative) Influenza Type A (PCR) (Not Detectd) Influenza Type B (PCR) (Not Detectd) RSV (PCR) (Not Detectd) SARS-CoV-2 (PCR) (Not Detectd) 01/03/23 01/03/23 01/03/23 Range/Units 22:56 22:56 22:56 WBC (3.8-10.6) k/uL RBC (4.30-5.90) m/uL Hgb (13.0-17.5) gm/dL Hct (39.0-53.0) % MCV (80.0-100.0) fL MCH (25.0-35.0) pg MCHC (31.0-37.0) g/dL RDW (11.5-15.5) % Plt Count (150-450) k/uL MPV Neutrophils % % Lymphocytes % % Monocytes % % Eosinophils % % Basophils % % Neutrophils # (1.3-7.7) k/uL Lymphocytes # (1.0-4.8) k/uL Monocytes # (0-1.0) k/uL Eosinophils # (0-0.7) k/uL Basophils # (0-0.2) k/uL PT (9.0-12.0) sec INR (<1.2) APTT (22.0-30.0) sec Sodium 138 (137-145) mmol/L Potassium 3.3 L (3.5-5.1) mmol/L Chloride 100 (98-107) mmol/L Carbon Dioxide 23 (22-30) mmol/L Anion Gap 15 mmol/L BUN 11 (9-20) mg/dL Creatinine 0.80 (0.66-1.25) mg/dL Est GFR (CKD-EPI)AfAm >90 (>60 ml/min/1.73 sqM) Est GFR (CKD-EPI)NonAf >90 (>60 ml/min/1.73 sqM) Glucose 99 (74-99) mg/dL Calcium 9.7 (8.4-10.2) mg/dL Total Bilirubin 1.1 (0.2-1.3) mg/dL AST 34 (17-59) U/L ALT 44 (4-49) U/L Alkaline Phosphatase 67 (38-126) U/L Troponin I <0.012 (0.000-0.034) ng/mL Total Protein 8.4 H (6.3-8.2) g/dL Albumin 5.1 H (3.5-5.0) g/dL Urine Color Urine Appearance (Clear) Urine pH (5.0-8.0) Ur Specific [place] (1.001-1.035) Urine Protein (Negative) Urine Glucose (UA) (Negative) Urine Ketones (Negative) Urine Blood (Negative) Urine Nitrite (Negative) Urine Bilirubin (Negative) Urine Urobilinogen (<2.0) mg/dL Ur Leukocyte Esterase (Negative) Influenza Type A (PCR) Not Detected (Not Detectd) Influenza Type B (PCR) Not Detected (Not Detectd) RSV (PCR) Not Detected (Not Detectd) SARS-CoV-2 (PCR) Not Detected (Not Detectd) Disposition Clinical Impression: Breast swelling Disposition: HOME SELF-CARE Condition: Stable Instructions (If sedation given, give patient instructions): Breast Mass (ED) Prescriptions: Ketorolac [Toradol] 10 mg PO TID #30 tab Is patient prescribed a controlled substance at d/c from ED?: No Referrals: Humberto Elena MD [Primary Care Provider] - 1-2 days Loretta Hamm MD [STAFF PHYSICIAN] - 1-2 days Time of Disposition: 04:10
[2023-01-04 04:20] VITALS: BP 159/93; PULSE 67
--- NOTE | 2023-01-05 09:58 | USB ---
Reason for Exam: Clinical finding. Findings: Hypoechoic area with hyperechoic center seen in area of lump measuring 1.6 x 1.2 x 0.7cm . Breast lobule is suspected. Overall Assessment: Incomplete: need additional imaging evaluation, BI-RAD 0 Management: Diagnostic Mammogram of both breasts. Advise bilateral breast mammogram to further evaluate. Electronically signed and approved by: Jamin Harding M.D.
== END 2023-01-04 05:39 | disposition home or self-care (01) ==
LOC: EC 22:28
DX: N63.20 Unspecified lump in the left breast, unspecified quadrant (principal); I10 Essential (primary) hypertension; F12.90 Cannabis use, unspecified, uncomplicated; Z88.0 Allergy status to penicillin; Z79.899 Other long term (current) drug therapy; Z20.822 Contact with and (suspected) exposure to COVID-19
CPT/HCPCS: 36415; 71046; 80053; 81003; 84484; 85025; 85610; 85730; 87636; 93005; 99285

== ENCOUNTER → 2023-01-07 | Outpatient (CLI) | payer BC ==
--- NOTE | 2023-01-10 08:04 | MM ---
Reason for Exam: Clinical finding. Baseline mammogram. Indicated Problems: Palpable abnormality of the left side (size 16) for 9 Month(s). Prior Study Comparison: Patient's first Mammogram. Tissue Density: There are scattered fibroglandular densities. Findings: Analyzed By CAD. Flame-shaped fibroglandular tissue subareolar region is present bilaterally. No suspicious masses or group of microcalcifications in either breast. Overall Assessment: Benign, BI-RAD 2 Management: Clinical Management in 1 year. Findings consistent with bilateral gynecomastia. Manage clinically left-sided pain and bilateral gynecomastia. Results were given to the patient verbally at the time of exam. No follow-up is necessary unless symptoms change. Electronically signed and approved by: Jamin Harding M.D.
== END | disposition home or self-care (01) ==
LOC: RADMAMWWP 13:30
PROVIDERS: ATTEND Physician Assistant
DX: R92.8 Other abnormal and inconclusive findings on diagnostic imaging of breast (principal)
CPT/HCPCS: 77062; 77066

== ENCOUNTER → 2024-09-04 | Outpatient (CLI) | payer BC ==
--- NOTE | 2024-09-04 15:33 | US ---
EXAMINATION TYPE: US carotid duplex BILAT DATE OF EXAM: 09/04/2024 COMPARISON: NONE CLINICAL INDICATION: Male, 49 years old with history of I65.29 OCCLUSION AND STENOSIS OF UNSPECIFIED DOMINGUEZ; Additional History: I66.- Occlusion/stenosis of specified cerebral artery, specified laterality TECHNIQUE: Grayscale, color Doppler and spectral Doppler evaluation of the bilateral carotid systems and vertebral arteries. Indirect Doppler criteria was utilized. FINDINGS: EXAM MEASUREMENTS: RIGHT: Peak Systolic Velocity (PSV) cm/sec ----- Right CCA: 105.5 ----- Right ICA: 76.4 ----- Right ECA: 85.4 ICA/CCA ratio: 0.7 RIGHT: End Diastole cm/sec ----- Right CCA: 28.5 ----- Right ICA: 25.6 ----- Right ECA: 16.1 LEFT: Peak Systolic Velocity (PSV) cm/sec ----- Left CCA: 91.4 ----- Left ICA: 71.3 ----- Left ECA: 63.7 ICA/CCA ratio: 0.8 LEFT: End Diastole cm/sec ----- Left CCA: 23.6 ----- Left ICA: 16.4 ----- Left ECA: 14.2 VERTEBRALS (direction of flow): Right Vertebral: Antegrade Left Vertebral: Antegrade Rhythm: Normal PRECIPITATION EQUIPMENT TENDER NOTES: No significant stenosis seen Color Doppler imaging shows patency with blood flow throughout the carotid artery. Spectral waveforms are within normal limits. IMPRESSION: 1. No significant flow-limiting stenosis by velocity bilateral carotid bifurcations. Criteria for Assigning % of Stenosis / Diameter reduction (Estimation based on the indirect measurements of the internal carotid artery velocities (ICA PSV). 1. Normal (no stenosis)=ICA PSV < 125 cm/s: ratio < 2.0: ICA EDV<40 cm/s. 2. Less than 50% stenosis=ICA PSV < 125 cm/s: ratio < 2.0: ICA EDV<40 cm/s. 3. 50 to 69% stenosis=ICA PSV of 125 to 230 cm/s: ration 2.0 ? 4.0: ICA EDV 40-100 cm/s. 4. Greater than 70% stenosis to near occlusion= ICA PSV > 230 cm/s: ratio > 4.0: ICA EDV > 100 cm/s. 5. Near occlusion= ICA PSV velocities may be low or undetectable: variable ratio and ICA EDV. 6. Total occlusion=unable to detect flow. [facility], , 09/04/2024 3:31 PM
== END | disposition home or self-care (01) ==
LOC: RADUSWWP 14:56
PROVIDERS: ATTEND Family Medicine
DX: I65.29 Occlusion and stenosis of unspecified carotid artery (principal)
CPT/HCPCS: 93880